=== PATIENT | female | born 1960 | race Caucasian/White ===

== ENCOUNTER 2018-02-07 22:33 | Inpatient (IN) | payer OTHER ==
[2018-02-07] MEDS ORDERED: NALOXONE 0.4 MG/ML 1 ML VIAL IV PRN (22:39)
[2018-02-07] MEDS ORDERED: ACETAMINOPHEN TAB 325 MG TAB PO PRN (22:39)
[2018-02-07] MEDS ORDERED: MORPHINE SULFATE 4 MG/ML SYRINGE IV PRN (22:39)
--- NOTE | 2018-02-07 22:52 | ED ---
General Adult HPI - General Stated complaint: Fever Time Seen by Provider: 02/07/18 22:37 - History of Present Illness Initial comments: Swati with past medical history significant for frequent urinary tract infections who is transferred to our hospital via EMS from an outside facility for evaluation of sepsis secondary to pyelonephritis. Patient reports that she has had urinary tract infections every year or so since she was a teenager. She does report that over the past couple of years she has noticed increasing frequency of urinary tract infections. She states that earlier this year she was admitted to a hospital in [facility], she went to the emergency department for diarrhea and was noted to have a urinary tract infection. At that time computed tomography scan revealed some abnormality though she was never told that she had kidney stones she did undergo a cystoscopy with stent placement. Her stent was subsequently removed. Patient has not followed with urology since that time. Patient reports that she is currently visiting her daughter who is moved to [place], she states that for the past 10 days she's been experiencing urinary frequency, hesitancy, dysuria she knew was indicative of another urinary tract infection. However because she does not have a primary care here and did not want around her vacation she did not seek care. Patient reports that today she is feeling fatigued, nauseated had a been eating or drinking well and decided come to the ER. An outside ER where she was noted to be febrile, tachycardic, urinalysis revealed a UTI, she had no leukocytosis but was noted to have neutrophilia and acute kidney injury. Computed tomography scan revealed diffuse bladder wall thickening as well as thickening of the ureters, patient was given IV fluids and Rocephin transferred here for further evaluation and treatment for sepsis secondary to pyelonephritis and potentially consult to urology. - Related Data Allergies Allergy/AdvReac Type Severity Reaction Status Date / Time celecoxib [From Celebrex] Allergy Rash/Hives Verified 02/07/18 22:42 Penicillins Allergy Unknown Verified 02/07/18 22:42 Childhood Sulfa (Sulfonamide Allergy Rash/Hives Verified 02/07/18 22:42 Antibiotics) Review of Systems ROS Statement: Those systems with pertinent positive or pertinent negative responses have been documented in the HPI. ROS Other: All systems not noted in ROS Statement are negative. Constitutional: Reports: fever, chills Respiratory: Denies: dyspnea Cardiovascular: Denies: chest pain, palpitations Endocrine: Reports: fatigue Gastrointestinal: Reports: abdominal pain, nausea Genitourinary: Reports: urgency, dysuria, frequency, hematuria Musculoskeletal: Reports: back pain Skin: Denies: rash Neurological: Denies: headache, weakness Psychiatric: Denies: anxiety, depression Hematological/Lymphatic: Denies: easy bleeding, easy bruising General Exam Limitations: no limitations, language barrier General appearance: alert, in no apparent distress Head exam: Present: atraumatic, normocephalic Eye exam: Present: normal appearance, PERRL ENT exam: Present: mucous membranes moist Neck exam: Present: full ROM Respiratory exam: Absent: respiratory distress Cardiovascular Exam: Present: tachycardia GI/Abdominal exam: Present: soft, other (Tenderness to palpation in suprapubic region). Absent: distended Extremities exam: Present: normal inspection Back exam: Present: CVA tenderness (R), CVA tenderness (L) Neurological exam: Present: alert, oriented X3 Psychiatric exam: Present: normal affect, normal mood Skin exam: Present: warm Course Vital Signs 02/07/18 22:35 Temperature 99.2 F Pulse Rate 102 H Respiratory 20 Rate Blood Pressure 174/88 O2 Sat by Pulse 97 Oximetry Medical Decision Making - Medical Decision Making I received a call from the transferring physician at outside facility, patient with sepsis secondary to pyelonephritis and CT findings of thickening bladder thickening ureters with no signs of nephrolithiasis. Patient was to be transferred to our facility for evaluation and treatment of sepsis, acute kidney injury and evaluation by urology. On arrival the patient's receiving IV fluids, she is resting comfortably on the EMS bed, she has noted be tachycardic and febrile still. Patient's labs were reviewed, patient did have a urinary tract infection, acute kidney injury. She did receive IV fluid bolus as well as Rocephin. At this time I do not feel any further diagnostic evaluation is indicated by the emergency room and the patient will be admitted for sepsis secondary to pyelonephritis. A consult to urology was placed for the patient to be evaluated tomorrow. Disposition Clinical Impression: Pyelonephritis, Sepsis Disposition: ADMITTED IP TO THIS [facility] Condition: Good Referrals: None,Stated [Primary Care Provider] - 1-2 days Decision Time: 23:26
[2018-02-07] MEDS ORDERED: GABAPENTIN 300 MG CAP PO STA (23:53)
[2018-02-08 01:10] LABS: Glucose,Whole Blood 164 mg/dL (75-99)
[2018-02-08 01:19] VITALS: BMI 29.5
[2018-02-08] MEDS: SODIUM CHLORIDE 0.9% 1,000 ML IV SCH ×5 (01:47→21:12)
[2018-02-08 07:09] LABS: Glucose,Whole Blood 247 mg/dL (75-99)
[2018-02-08] MEDS ORDERED: PANTOPRAZOLE 40 MG TABLET PO SCH (07:30)
[2018-02-08] MEDS: INSULIN ASPART 100 UNIT/ML 1 ML 10 ML VIAL SQ SCH ×4 (07:47→20:03)
[2018-02-08 07:54] LABS: Basophils # (A) 0.1 k/uL (0-0.2); Basophils % (A) 1 %; Eosinophils # (A) 0.1 k/uL (0-0.7); Eosinophils % (A) 1 %; HCT 32.6 % (34.0-46.0); HGB 10.3 gm/dL (11.4-16.0); Hypochromasia Slight; Lymphocytes # (A) 1.1 k/uL (1.0-4.8); Lymphocytes % (A) 17 %; MCH 25.1 pg (25.0-35.0); MCHC 31.5 g/dL (31.0-37.0); MCV 79.6 fL (80.0-100.0); Mean Platelet Volume 6.3; Monocytes # (A) 0.3 k/uL (0-1.0); Monocytes % (A) 5 %; Neutrophils % (A) 76 %; Platelet Count 267 k/uL (150-450); RBC 4.09 m/uL (3.80-5.40); RDW 14.7 % (11.5-15.5); WBC 6.6 k/uL (3.8-10.6)
[2018-02-08] MEDS: GABAPENTIN 300 MG CAP PO SCH ×3 (08:02→21:12)
[2018-02-08] MEDS: CITALOPRAM HYDROBROMIDE 20 MG TAB PO SCH (08:02)
[2018-02-08 08:24] LABS: Magnesium 1.4 mg/dL (1.6-2.3); Potassium 5.2 mmol/L (3.5-5.1)
[2018-02-08] MEDS: INSULIN DETEMIR 100 UNIT/ML 10 ML VIAL SQ SCH (08:47)
[2018-02-08] MEDS: traMADol 50 MG TAB PO PRN ×3 (08:56→21:12)
[2018-02-08] MEDS ORDERED: LISINOPRIL 20 MG TAB PO SCH (09:00)
[2018-02-08] MEDS: cefTRIAXone IN SWFI 1,000 MG/10 ML SYRINGE IVP SCH (09:57)
[2018-02-08] MEDS: MAGNESIUM SULFATE-D5W PMX 1 GM in DEXTROSE/WATER 1 100ML.BAG IVPB SCH ×2 (10:31→11:54)
--- NOTE | 2018-02-08 11:00 | P.HPIM ---
History of Present Illness Patient with history of multiple UTIs in the past and a recent urinary stent came in with complains of pressure in the superpubic area, dysuria. Patient urinalysis is not impressive showed 1+ bacteria. Patient is transferred from [facility]. Patient had kidney stones and underwent a cystoscopy and stent placement recently. Patient will be started on Rocephin which she tolerated at other facility urine cultures and urine will be obtained these were already obtained at the other facility. Patient has renal dysfunction she was told recently that she has chronic kidney disease may be from diabetic nephropathy on hold off on 9 lisinopril her blood pressure is expected to go up patient was started on IV fluids which I will continue and repeat basic metabolic profile tomorrow. He was consulted from ER patient denied any flank pain. Review of Systems REVIEW OF SYSTEMS: CONSTITUTIONAL: No fever, no malaise, no fatigue. HEENT: No recent visual problems or hearing problems. Denied any sore throat. CARDIOVASCULAR: No chest pain, orthopnea, PND, no palpitations, no syncope. PULMONARY: No shortness of breath, no cough, no hemoptysis. GASTROINTESTINAL: No diarrhea, no nausea, no vomiting, no abdominal pain. Normoactive bowel sounds. NEUROLOGICAL: No headaches, no weakness, no numbness. HEMATOLOGICAL: Denies any bleeding or petechiae. GENITOURINARY: As mentioned in HPI patient is also complaining of urinary frequency MUSCULOSKELETAL/RHEUMATOLOGICAL: Denies any joint pain, swelling, or any muscle pain. ENDOCRINE: Denies any polyuria or polydipsia. The rest of the 14-point review of systems is negative. Past Medical History Past Medical History: Diabetes Mellitus, Hypertension History of Any Multi-Drug Resistant Organisms: None Reported Past Surgical History: Hernia Repair, Tubal Ligation Additional Past Surgical History / Comment(s): Renal stents: end of November. Stents removed in early December per patient. Hemangioma opened and drained 20 years ago. Past Anesthesia/Blood Transfusion Reactions: No Reported Reaction Past Psychological History: No Psychological Hx Reported Smoking Status: Never smoker Past Alcohol Use History: None Reported Past Drug Use History: None Reported - Past Family History Sister(s) Family Medical History: Hypertension Additional Family Medical History / Comment(s): CML, Mother Family Medical History: Hypertension Additional Family Medical History / Comment(s): Per patient mother was a borderline diabetic. at 49 years old from septic gallbladder attack and PR. Medications and Allergies Home Medications Medication Instructions Recorded Confirmed Type Citalopram Hydrobromide [CeleXA] 20 mg PO DAILY 02/08/18 02/08/18 History Gabapentin [Neurontin] 300 mg PO TID 02/08/18 02/08/18 History Insulin Aspart [NovoLOG] 0 units SQ ACHS 02/08/18 02/08/18 History Insulin Detemir [Levemir] 26 unit SQ QAM 02/08/18 02/08/18 History Lisinopril [Zestril] 20 mg PO DAILY 02/08/18 02/08/18 History Omeprazole [PriLOSEC] 20 mg PO AC-BRKFST 02/08/18 02/08/18 History traMADol HCL [Ultram] 50 mg PO Q6HR PRN 02/08/18 02/08/18 History Allergies Allergy/AdvReac Type Severity Reaction Status Date / Time celecoxib [From Celebrex] Allergy Rash/Hives Verified 02/07/18 22:42 Penicillins Allergy Unknown Verified 02/07/18 22:42 Childhood shellfish derived [Shellfish] Allergy Rash/Hives Verified 02/08/18 04:20 Sulfa (Sulfonamide Allergy Rash/Hives Verified 02/07/18 22:42 Antibiotics) Physical Exam Vitals: Vital Signs Temp Pulse Pulse Pulse Resp BP BP 02/08/18 08:50 112 H 110 H 16 02/08/18 05:00 97.6 F 110 H 16 169/94 02/08/18 00:26 97.7 F 112 H 16 162/86 02/07/18 22:35 99.2 F 102 H 20 174/88 Pulse Ox 02/08/18 08:50 02/08/18 05:00 97 02/08/18 00:26 98 02/07/18 22:35 97 Intake and Output 02/07/18 02/08/18 02/08/18 22:59 06:59 14:59 Other: Voiding Method Toilet Toilet # Voids 1 1 Weight 79.379 kg 78 kg 78 kg PHYSICAL EXAMINATION: GENERAL: The patient is alert and oriented x3, not in any acute distress. Well developed, well nourished. HEENT: Pupils are round and equally reacting to light. EOMI. No scleral icterus. No conjunctival pallor. Normocephalic, atraumatic. No pharyngeal erythema. No thyromegaly. CARDIOVASCULAR: S1 and S2 present. No murmurs, rubs, or gallops. PULMONARY: Chest is clear to auscultation, no wheezing or crackles. ABDOMEN: Soft, nontender, nondistended, normoactive bowel sounds. No palpable organomegaly. MUSCULOSKELETAL: No joint swelling or deformity. EXTREMITIES: No cyanosis, clubbing, or pedal edema. NEUROLOGICAL: Gross neurological examination did not reveal any focal deficits. SKIN: No rashes. Results CBC & Chem 7: 02/08/18 07:09 02/08/18 07:09 Labs: Abnormal Lab Results - Last 24 Hours (Table) 02/08/18 02/08/18 02/08/18 Range/Units 01:08 07:09 07:09 Hgb 10.3 L (11.4-16.0) gm/dL Hct 32.6 L (34.0-46.0) % MCV 79.6 L (80.0-100.0) fL Potassium 5.2 H (3.5-5.1) mmol/L Chloride 110 H (98-107) mmol/L Carbon Dioxide 20 L (22-30) mmol/L BUN 38 H (7-17) mg/dL Creatinine 2.03 H (0.52-1.04) mg/dL Glucose 242 H (74-99) mg/dL POC Glucose (mg/dL) 164 H (75-99) mg/dL Magnesium 1.4 L (1.6-2.3) mg/dL 02/08/18 Range/Units 07:09 Hgb (11.4-16.0) gm/dL Hct (34.0-46.0) % MCV (80.0-100.0) fL Potassium (3.5-5.1) mmol/L Chloride (98-107) mmol/L Carbon Dioxide (22-30) mmol/L BUN (7-17) mg/dL Creatinine (0.52-1.04) mg/dL Glucose (74-99) mg/dL POC Glucose (mg/dL) 247 H (75-99) mg/dL Magnesium (1.6-2.3) mg/dL Thrombosis Risk Factor Assmnt - Choose All That Apply Each Factor Represents 1 point: Age 41-60 years, Sepsis (< 1month) Other Risk Factors: No Thrombosis Risk Factor Assessment Total Risk Factor Score: 2 Thrombosis Risk Factor Assessment Level: Low Risk Assessment and Plan Plan: -Possibility of urinary tract infection cultures as mentioned above patient will be started on Rocephin infectious disease will be consulted as I cannot completely rule in or rule out UTI. -Type 2 diabetes mellitus with the possibility of diabetic nephropathy stage IV. I do not have baseline creatinine. -Renal failure: Most probably chronic kidney disease all give her IV fluid challenge and see if kidney function improves patient may have a competent of prerenal azotemia. -Hyperkalemia secondary to lisinopril which will be held and because of renal failure lisinopril will need need to be held as its only minimally elevated on repeat basic metabolic profile tomorrow no further intervention at this time. -Hypertension: I will let her blood pressures stay high unless it goes up about 200 systolic patient will be given when necessary oral antidepressant medications.
[2018-02-08 11:24] LABS: Glucose,Whole Blood 141 mg/dL (75-99)
--- NOTE | 2018-02-08 11:53 | P.GSCN ---
History of Present Illness Consult date: 02/08/18 Reason for Consult: Pyelonephritis History of present illness: The patient is a 57-year-old female who was transferred from the [facility] emergency room yesterday evening for treatment of presumed pyelonephritis. She says that over the last 10 days she has developed increasing urinary frequency, low back pain and dysuria. Yesterday she thought she had a fever although she never checked her temperature. She presented to the [facility] emergency room where she was noted have a temperature of 98.2. Her white blood count was 7500. Lactic acid was 0.9. BUN/creatinine were 35/2.0. A urinalysis showed evidence of pyuria but was negative for nitrite. Computed tomography scan of the abdomen and pelvis showed mild bilateral hydronephrosis but no evidence of urolithiasis. The ureters appeared to be slightly dilated down to the level of the bladder which was felt to be thick walled. The radiologist felt there was periureteral and renal stranding. The patient was started on antibiotics and transferred for further evaluation. Since the patient has been transferred she has remained afebrile. Her white blood count is 6600. She continues to have pain which is predominantly in the suprapubic area and low back. The patient said that she was evaluated by a urologist in [place] in November and at that time a computed tomography scan showed evidence of a thick-walled bladder and hydronephrosis. She said that she had a left double-J catheter in place for several weeks and this was removed in late November. She is uncertain as to the cause of the bladder abnormality. She had says that she has had urinary tract infections in the past. She has no history of urolithiasis. She is currently voiding every 30-60 minutes during the day and night. She says that this has worsened over the last 7-10 days but she believes she's had urinary frequency to some degree ever since November. She did note a small amount of blood in the urine yesterday. Review of Systems - Constitutional Reports chills, Reports lethargy, Denies fever - Cardiovascular Reports high blood pressure, Reports palpitations, Denies shortness of breath - Respiratory Denies cough - Gastrointestinal Reports as per HPI - Genitourinary Genitourinary: Reports as per HPI Past Medical History Past Medical History: Diabetes Mellitus, Hypertension History of Any Multi-Drug Resistant Organisms: None Reported Past Surgical History: Hernia Repair (Umbilical 3), Tubal Ligation Additional Past Surgical History / Comment(s): Renal stents: end of November. Stents removed in early December per patient. Hemangioma opened and drained 20 years ago. Past Anesthesia/Blood Transfusion Reactions: No Reported Reaction Past Psychological History: No Psychological Hx Reported Smoking Status: Never smoker Past Alcohol Use History: None Reported Past Drug Use History: None Reported - Past Family History Sister(s) Family Medical History: Hypertension Additional Family Medical History / Comment(s): CML, Mother Family Medical History: Hypertension Additional Family Medical History / Comment(s): Per patient mother was a borderline diabetic. at 49 years old from septic gallbladder attack and DC. Medications and Allergies Home Medications Medication Instructions Recorded Confirmed Type Citalopram Hydrobromide [CeleXA] 20 mg PO DAILY 02/08/18 02/08/18 History Gabapentin [Neurontin] 300 mg PO TID 02/08/18 02/08/18 History Insulin Aspart [NovoLOG] 0 units SQ ACHS 02/08/18 02/08/18 History Insulin Detemir [Levemir] 26 unit SQ QAM 02/08/18 02/08/18 History Lisinopril [Zestril] 20 mg PO DAILY 02/08/18 02/08/18 History Omeprazole [PriLOSEC] 20 mg PO AC-BRKFST 02/08/18 02/08/18 History traMADol HCL [Ultram] 50 mg PO Q6HR PRN 02/08/18 02/08/18 History Allergies Allergy/AdvReac Type Severity Reaction Status Date / Time celecoxib [From Celebrex] Allergy Rash/Hives Verified 02/07/18 22:42 Penicillins Allergy Unknown Verified 02/07/18 22:42 Childhood shellfish derived [Shellfish] Allergy Rash/Hives Verified 02/08/18 04:20 Sulfa (Sulfonamide Allergy Rash/Hives Verified 02/07/18 22:42 Antibiotics) Surgical - Exam Vital Signs Temp Pulse Resp BP Pulse Ox 99.2 F 102 H 20 174/88 97 02/07/18 22:35 02/07/18 22:35 02/07/18 22:35 02/07/18 22:35 02/07/18 22:35 - General well developed, well nourished, no distress - Neck no masses, no lymphadectomy - Respiratory normal respiratory effort - Abdomen Abdomen: soft, non tender, no organomegaly, no distended Hernia: none Results - Labs 02/08/18 07:09 02/08/18 07:09 Abnormal Lab Results - Last 24 Hours (Table) 02/08/18 02/08/18 02/08/18 Range/Units 01:08 07:09 07:09 Hgb 10.3 L (11.4-16.0) gm/dL Hct 32.6 L (34.0-46.0) % MCV 79.6 L (80.0-100.0) fL Potassium 5.2 H (3.5-5.1) mmol/L Chloride 110 H (98-107) mmol/L Carbon Dioxide 20 L (22-30) mmol/L BUN 38 H (7-17) mg/dL Creatinine 2.03 H (0.52-1.04) mg/dL Glucose 242 H (74-99) mg/dL POC Glucose (mg/dL) 164 H (75-99) mg/dL Magnesium 1.4 L (1.6-2.3) mg/dL 02/08/18 02/08/18 Range/Units 07:09 11:23 Hgb (11.4-16.0) gm/dL Hct (34.0-46.0) % MCV (80.0-100.0) fL Potassium (3.5-5.1) mmol/L Chloride (98-107) mmol/L Carbon Dioxide (22-30) mmol/L BUN (7-17) mg/dL Creatinine (0.52-1.04) mg/dL Glucose (74-99) mg/dL POC Glucose (mg/dL) 247 H 141 H (75-99) mg/dL Magnesium (1.6-2.3) mg/dL Diabetes panel 02/08/18 Range/Units 07:09 Sodium 139 (137-145) mmol/L Potassium 5.2 H (3.5-5.1) mmol/L Chloride 110 H (98-107) mmol/L Carbon Dioxide 20 L (22-30) mmol/L BUN 38 H (7-17) mg/dL Creatinine 2.03 H (0.52-1.04) mg/dL Glucose 242 H (74-99) mg/dL Calcium 9.0 (8.4-10.2) mg/dL Calcium panel 02/08/18 Range/Units 07:09 Calcium 9.0 (8.4-10.2) mg/dL Pituitary panel 02/08/18 Range/Units 07:09 Sodium 139 (137-145) mmol/L Potassium 5.2 H (3.5-5.1) mmol/L Chloride 110 H (98-107) mmol/L Carbon Dioxide 20 L (22-30) mmol/L BUN 38 H (7-17) mg/dL Creatinine 2.03 H (0.52-1.04) mg/dL Glucose 242 H (74-99) mg/dL Calcium 9.0 (8.4-10.2) mg/dL Adrenal panel 02/08/18 Range/Units 07:09 Sodium 139 (137-145) mmol/L Potassium 5.2 H (3.5-5.1) mmol/L Chloride 110 H (98-107) mmol/L Carbon Dioxide 20 L (22-30) mmol/L BUN 38 H (7-17) mg/dL Creatinine 2.03 H (0.52-1.04) mg/dL Glucose 242 H (74-99) mg/dL Calcium 9.0 (8.4-10.2) mg/dL Assessment and Plan (1) Cystitis Narrative/Plan: The patient's symptoms, lack of fever, lack of elevated white blood count and lack of lactic acidosis or more consistent with acute cystitis then acute pyelonephritis. The patient's pain is mainly in the low back and suprapubic area and is not lateralized to either the right or left side which is also consistent with this. The patient apparently has chronic thickening of the bladder dates back to at least November which would explain the mild hydronephrosis noted on the computed tomography scan. No further evaluation of this is necessary at this time however the patient should follow up with her urologist when she returns to [place] in March. Her renal function is not normal but this may also be chronic. I plan no further evaluation. Current Visit: Yes Status: Acute Code(s): N30.90 - CYSTITIS, UNSPECIFIED WITHOUT HEMATURIA SNOMED Code(s): 66367135
[2018-02-08 12:27] LABS: Appearance,Urine Turbid (Clear); Bacteria,Urine Rare /hpf; Bilirubin,Urine Negative (Negative); Blood,Urine Moderate (Negative); Budding Yeast,Urine Many /hpf; Color,Urine Light Yellow; Glucose,Urine (UA) 1+ (Negative); Ketones,Urine Negative (Negative); Leukocyte Esterase,Urine Large (Negative); Nitrite,Urine Negative (Negative); Protein,Urine 1+ (Negative); RBC,Urine 31 /hpf (0-5); Specific Gravity,Urine 1.014 (1.001-1.035); Squamous Epithelial Cell,Urine 4 /hpf (0-4); Urobilinogen,Urine <2.0 mg/dL (<2.0); WBC,Urine >182 /hpf (0-5)
[2018-02-08 16:45] LABS: Glucose,Whole Blood 87 mg/dL (75-99)
[2018-02-08] MEDS: FLUCONAZOLE 100 MG TAB PO SCH (19:59)
[2018-02-08 20:00] LABS: Glucose,Whole Blood 180 mg/dL (75-99)
--- NOTE | 2018-02-08 20:33 | CONS ---
CONSULTATION DATE OF SERVICE: 02/08/2018. REASON FOR CONSULTATION: 1. Urinary tract infection. 2. Multiple antibiotic allergy. HISTORY OF PRESENT ILLNESS: The patient is a 57 -year-old female who did have a complicated urinary history as the patient did have a history of urinary obstruction requiring a stent placement on the left side that was subsequently discontinued. The patient said she did have an infection at that time and has been treated with a course of oral antibiotic therapy, however the patient is not sure about the name of this antibiotic. The patient who lives in [place], [place] recently moved to the [facility] as the daughter has moved here. The patient presented to [facility] with chief complaints of a pressure in the lower abdominal area with urinary frequency and dysuria. Her symptoms have been going on for almost 10 days now. The patient did have some low-grade fever. Denies having any fever, rigors and chills. The patient did complain of some pain in her left flank area, more of a dull aching pain 3-4 out of 10 and no radiation. With these symptoms, the patient was evaluated by the ER physician as the patient was tachycardic, febrile at that facility did have positive with concern for possible pyelonephritis. Patient has been transferred to this facility for further management. The patient has been treated with Rocephin. Infectious disease was consulted for further recommendation regarding antibiotic therapy. REVIEW OF SYSTEMS: Constitutional: Positive for weakness and some chills. Eyes: No complaint. ENT no complaint. Respiratory no complaint. Cardiovascular no complaint. Genitourinary as per HPI. GASTROINTESTINAL: As per HPI. Musculoskeletal: No complaint. Integumentary: No complaint. Psychological: No complaint. Endocrine no complaint. Neurologic no complaint. PAST MEDICAL HISTORY: Significant for UTI, urine outflow obstruction requiring a stent placement, diabetes mellitus, hypertension. PAST SURGICAL HISTORY: Hernia repair, tubal ligation, renal stent placement and subsequent removal. SOCIAL HISTORY: No history of smoking, drinking or drug use. FAMILY HISTORY: Sister with hypertension and CML. Mother history of hypertension and diabetes. ALLERGIES: PENICILLIN, SULFA. MEDICATIONS: The patient is currently on Tylenol, Rocephin, Celexa, Colace, Neurontin, NovoLog, Levemir, morphine sulfate, Narcan, Ultram. EXAMINATION: Blood pressure 120/75 with pulse of 110, temperature of 98, T-max of 99.2, she is 99% on room air. General description is a middle aged female lying in bed in no distress. No tachypnea or accessory muscles of respiration use. HEENT: Shows pallor. No scleral icterus. Oral mucosa membranes are dry. No pharyngeal erythema or thrush. Neck trachea central. No thyromegaly. Lungs unlabored breathing. Clear to auscultation anteriorly. No wheeze or crackles. Heart S1, S2. Regular rate and rhythm. ABDOMEN: Soft. No tenderness. No guarding or rigidity. Minimal left leg tenderness. Extremities: No edema of the feet. Skin examination: No rash or mass palpable. Neurological: Patient is awake, alert, oriented times three. Mood and affect normal. LABS: Hemoglobin is 10.3, white count 6.6, BUN of 28, creatinine 2.03. UA with moderate leukocyte esterases, more than 1-2 WBC with many bacteria and many budding yeast. Cultures currently pending. DIAGNOSTIC IMPRESSION/PLAN: 1. Patient presented to the hospital with urinary pressure, burning, frequency and dysuria in a patient who does have a history of a complicated urinary tract infection with urinary obstruction requiring ureteral stent placement that was recently discontinued, now with a significantly positive UA. The patient apparently did have a fever at [facility] and tachycardia with concern for possible sepsis. However no fever or elevated white count has been noted at this facility. Likely from enteric gram-negative. However, in view of the significant yeast, will need to cover this. We will continue the patient on Rocephin 1 g daily. However, add Diflucan 1 mg p.o. daily. 2. Depending upon the clinical response as well as cultures we will adjust her medications further if needed. Thank you for this consultation. I will follow this patient along with you. MMODL / IJN: [id number] /
[2018-02-08] MEDS: DOCUSATE 100 MG CAP PO PRN (21:12)
[2018-02-09] MEDS: traMADol 50 MG TAB PO PRN ×4 (02:27→20:47)
[2018-02-09] MEDS: SODIUM CHLORIDE 0.9% 1,000 ML IV SCH ×2 (04:28→11:54)
[2018-02-09 06:56] LABS: Glucose,Whole Blood 133 mg/dL (75-99)
[2018-02-09 07:13] VITALS: RESP 16
[2018-02-09 07:35] LABS: HGB 10.1 gm/dL (11.4-16.0); Hypochromasia Slight; MCH 25.2 pg (25.0-35.0); MCHC 31.6 g/dL (31.0-37.0); Mean Platelet Volume 6.3; Platelet Count 265 k/uL (150-450); RDW 15.1 % (11.5-15.5); WBC 7.4 k/uL (3.8-10.6)
[2018-02-09 07:43] LABS: Calcium 9.2 mg/dL (8.4-10.2); Potassium 5.4 mmol/L (3.5-5.1)
[2018-02-09] MEDS: INSULIN ASPART 100 UNIT/ML 1 ML 10 ML VIAL SQ SCH ×4 (07:45→20:48)
[2018-02-09] MEDS: GABAPENTIN 300 MG CAP PO SCH ×3 (07:58→20:47)
[2018-02-09] MEDS: FLUCONAZOLE 100 MG TAB PO SCH (07:58)
[2018-02-09] MEDS: CITALOPRAM HYDROBROMIDE 20 MG TAB PO SCH (07:58)
[2018-02-09] MEDS: DOCUSATE 100 MG CAP PO PRN (08:11)
[2018-02-09] MEDS: INSULIN DETEMIR 100 UNIT/ML 10 ML VIAL SQ SCH (09:06)
[2018-02-09] MEDS: cefTRIAXone IN SWFI 1,000 MG/10 ML SYRINGE IVP SCH (09:06)
[2018-02-09] MEDS ORDERED: SODIUM POLYSTYRENE SULFONATE 15 GM/60 ML BOTTLE PO STA (09:48)
--- NOTE | 2018-02-09 10:47 | P.PN ---
Subjective 57-year-old admitted with the acute severe cystitis and urinary tract infection patient on Rocephin which is being continued. Flucanazole was added infectious disease is a valid the patient neurology evaluated the patient. Patient is still complaining of severe pressure in the superpubic area. Cut him IV fluids to 75 mL/h. Patient renal failure is probably chronic and no improvement in creatinine in spite of aggressive hydration. Constitutional: Denied any fatigue denied any fever. Cardio vascular: denied any chest pain, palpitations Gastrointestinal denied any nausea vomiting Pulmonary: Denied any shortness of breath cough Neurologic denied any new focal deficits Objective - Vital Signs Vital signs: Vital Signs Temp 98.4 F 02/09/18 07:12 Pulse 99 02/09/18 08:06 Resp 16 02/09/18 08:06 BP 150/77 02/09/18 07:12 Pulse Ox 96 02/09/18 07:12 Intake & Output 02/08/18 02/09/18 02/09/18 18:59 06:59 18:59 Intake Total 2390 Balance 2390 Weight 78 kg 78 kg Intake: Intake, IV Titration 1800 Amount Sodium Chloride 0.9% 1, 1800 000 ml @ 150 mls/hr IV . Q6H40M [facility] Rx#:[id number] Oral 590 Other: Voiding Method Toilet Toilet Toilet # Voids 5 2 - Exam PHYSICAL EXAMINATION: GENERAL: The patient is alert and oriented x3, not in any acute distress. Well developed, well nourished. HEENT: Pupils are round and equally reacting to light. EOMI. No scleral icterus. No conjunctival pallor. Normocephalic, atraumatic. No pharyngeal erythema. No thyromegaly. CARDIOVASCULAR: S1 and S2 present. No murmurs, rubs, or gallops. PULMONARY: Chest is clear to auscultation, no wheezing or crackles. ABDOMEN: Soft, nontender, nondistended, normoactive bowel sounds. No palpable organomegaly. MUSCULOSKELETAL: No joint swelling or deformity. EXTREMITIES: No cyanosis, clubbing, or pedal edema. NEUROLOGICAL: Gross neurological examination did not reveal any focal deficits. SKIN: No rashes. - Labs CBC & Chem 7: 02/09/18 06:48 02/09/18 06:48 Labs: Abnormal Lab Results - Last 24 Hours (Table) 02/08/18 02/08/18 02/08/18 Range/Units 10:47 11:23 19:58 Hgb (11.4-16.0) gm/dL Hct (34.0-46.0) % Potassium (3.5-5.1) mmol/L Chloride (98-107) mmol/L Carbon Dioxide (22-30) mmol/L BUN (7-17) mg/dL Creatinine (0.52-1.04) mg/dL Glucose (74-99) mg/dL POC Glucose (mg/dL) 141 H 180 H (75-99) mg/dL Urine Appearance Turbid H (Clear) Urine Protein 1+ H (Negative) Urine Glucose (UA) 1+ H (Negative) Urine Blood Moderate H (Negative) Ur Leukocyte Esterase Large H (Negative) Urine RBC 31 H (0-5) /hpf Urine WBC >182 H (0-5) /hpf Urine WBC Clumps Many H (None) /hpf Urine Bacteria Rare H (None) /hpf Urine Yeast (Budding) Many H (None) /hpf 02/09/18 02/09/18 02/09/18 Range/Units 06:48 06:48 06:55 Hgb 10.1 L (11.4-16.0) gm/dL Hct 32.0 L (34.0-46.0) % Potassium 5.4 H (3.5-5.1) mmol/L Chloride 113 H (98-107) mmol/L Carbon Dioxide 19 L (22-30) mmol/L BUN 34 H (7-17) mg/dL Creatinine 2.07 H (0.52-1.04) mg/dL Glucose 130 H (74-99) mg/dL POC Glucose (mg/dL) 133 H (75-99) mg/dL Urine Appearance (Clear) Urine Protein (Negative) Urine Glucose (UA) (Negative) Urine Blood (Negative) Ur Leukocyte Esterase (Negative) Urine RBC (0-5) /hpf Urine WBC (0-5) /hpf Urine WBC Clumps (None) /hpf Urine Bacteria (None) /hpf Urine Yeast (Budding) (None) /hpf Microbiology - Last 24 Hours (Table) 02/08/18 10:47 Urine Culture - Preliminary Urine,Voided Assessment and Plan Plan: -Possibility of urinary tract infection awaiting urine cultures, patient appears to have severe cystitis . Continue with Rocephin flucanazole was added by infectious disease which will be continued -Type 2 diabetes mellitus with the possibility of diabetic nephropathy stage IV. -Renal failure: It appears to be chronic kidney disease from diabetic nephropathy had on the fluids to 75 mL per hour -Hyperkalemia secondary to lisinopril which will be held, patient is constipated as well will order kayexalate. basic metabolic profile tomorrow n -Hypertension: I will let her blood pressures stay high unless it goes up about 200 systolic patient will be given when necessary oral antidepressant medications.
[2018-02-09 11:18] LABS: Glucose,Whole Blood 210 mg/dL (75-99)
[2018-02-09 16:52] LABS: Glucose,Whole Blood 99 mg/dL (75-99)
[2018-02-09 19:58] LABS: Glucose,Whole Blood 124 mg/dL (75-99)
--- NOTE | 2018-02-10 00:22 | PN ---
PROGRESS NOTE DATE OF SERVICE: 02/09/2018 REASON FOR FOLLOWUP: urinary tract infection. INTERVAL HISTORY: The patient is afebrile. He is still complaining of pressure in the lower abdominal area with some radiation down to the anterior thigh. The patient denies having any chest pain or shortness of breath or cough and no diarrhea. EXAMINATION: Blood pressure 176/83 with a pulse of 102, temperature 98.7, she is 94% on room air. General description is a middle-aged female lying in bed in no distress. Respiratory system: Unlabored breathing. Clear to auscultation anteriorly. Heart S1, S2. Regular rate and rhythm. Abdomen soft, no tenderness. Extremities: No edema of the feet. LABS: Hemoglobin is 10.2, white count 7.4, creatinine is 2.07. Urine culture so far negative. DIAGNOSTIC IMPRESSION AND PLAN: Patient admitted to the hospital with a possible complicated urinary tract infection for which the patient did have a complicated previous complete urinary history with stent that was recently removed on the floor. Did have evidence of hydronephrosis with elevated creatinine and had positive UA. Did have some fever in the outpatient setting. However, fevers resolved. Urine culture so far negative. Keep the patient on Rocephin and Diflucan at this point while waiting for condition to stabilize. Continue supportive care. MMODL / IJN: [id number] /
[2018-02-10] MEDS: SODIUM CHLORIDE 0.9% 1,000 ML IV SCH ×2 (00:59→17:10)
[2018-02-10] MEDS: traMADol 50 MG TAB PO PRN ×2 (06:24→17:08)
[2018-02-10 07:02] LABS: Glucose,Whole Blood 112 mg/dL (75-99)
[2018-02-10] MEDS: INSULIN ASPART 100 UNIT/ML 1 ML 10 ML VIAL SQ SCH ×4 (07:40→20:18)
[2018-02-10 08:42] LABS: Calcium 8.9 mg/dL (8.4-10.2); Potassium 4.2 mmol/L (3.5-5.1)
[2018-02-10] MEDS: GABAPENTIN 300 MG CAP PO SCH ×3 (09:43→21:44)
[2018-02-10] MEDS: FLUCONAZOLE 100 MG TAB PO SCH (09:43)
[2018-02-10] MEDS: INSULIN DETEMIR 100 UNIT/ML 10 ML VIAL SQ SCH (09:44)
[2018-02-10] MEDS: CITALOPRAM HYDROBROMIDE 20 MG TAB PO SCH (09:44)
--- NOTE | 2018-02-10 10:56 | P.DS ---
Providers Date of admission: 02/07/18 22:39 Attending physician: Tiffanie Reynolds Consults: 02/07/18 22:39 Consult Physician Routine Consulting Provider: [place] Consult Reason/Comments: pyelonephritis, evidence of bladder/ureteral thickening on CT Do you want consulting provider notified?: Yes, Notify in am 02/08/18 09:40 Consult Physician Routine Consulting Provider: Jb Jorgensen Consult Reason/Comments: Possible UTI Do you want consulting provider notified?: Yes Primary care physician: Stated None Hospital Course: 57-year-old admitted with the acute severe cystitis and urinary tract infection patient on Rocephin which is being continued. Flucanazole was added infectious disease is a valid the patient neurology evaluated the patient. Patient is still complaining of severe pressure in the superpubic area. Cut him IV fluids to 75 mL/h. Patient renal failure is probably chronic and no improvement in creatinine in spite of aggressive hydration. 02/10/2018 I do not have any cultures available from this hospital as patient was already treated with antibiotics before we get the urine culture see her. We'll obtain urine cultures from [facility] once we get the cultures after ID assessment patient can be discharged patient still has suprapubic pressure which significantly improved compared to yesterday patient creatinine remains stable are bit elevated this is secondary to chronic kidney disease because of which patient can be resumed on lisinopril but will lower the dose and we will repeat the basic metabolic profile in 3 days make sure patient is not becoming hyperkalemic. PHYSICAL EXAMINATION: GENERAL: The patient is alert and oriented x3, not in any acute distress. Well developed, well nourished. HEENT: Pupils are round and equally reacting to light. EOMI. No scleral icterus. No conjunctival pallor. Normocephalic, atraumatic. No pharyngeal erythema. No thyromegaly. CARDIOVASCULAR: S1 and S2 present. No murmurs, rubs, or gallops. PULMONARY: Chest is clear to auscultation, no wheezing or crackles. ABDOMEN: Soft, nontender, nondistended, normoactive bowel sounds. No palpable organomegaly. MUSCULOSKELETAL: No joint swelling or deformity. EXTREMITIES: No cyanosis, clubbing, or pedal edema. NEUROLOGICAL: Gross neurological examination did not reveal any focal deficits. SKIN: No rashes Assessment and Plan Plan: -Possibility of urinary tract infection awaiting urine cultures, -Type 2 diabetes mellitus with the possibility of diabetic nephropathy stage IV. -Renal failure: Chronic kidney disease stage IV secondary to diabetic nephropathy -Hyperkalemia secondary to lisinopril cutting down the dose upon discharge -Hypertension: Patient Condition at Discharge: Good Plan - Discharge Summary Discharge Rx Participant: No New Discharge Prescriptions: Continue Gabapentin [Neurontin] 300 mg PO TID PRN PRN Reason: Pain Citalopram Hydrobromide [CeleXA] 20 mg PO DAILY Insulin Aspart [NovoLOG] See Protocol SQ AC-TID traMADol HCL [Ultram] 50 mg PO Q6HR PRN PRN Reason: Pain Omeprazole [PriLOSEC] 20 mg PO AC-BRKFST Changed Insulin Detemir [Levemir] 20 unit SQ QAM #0 Lisinopril [Zestril] 10 mg PO DAILY #0 Discharge Medication List Citalopram Hydrobromide [CeleXA] 20 mg PO DAILY 02/08/18 [History] Gabapentin [Neurontin] 300 mg PO TID PRN 02/08/18 [History] Insulin Aspart [NovoLOG] See Protocol SQ AC-TID 02/08/18 [History] Omeprazole [PriLOSEC] 20 mg PO AC-BRKFST 02/08/18 [History] traMADol HCL [Ultram] 50 mg PO Q6HR PRN 02/08/18 [History] Insulin Detemir [Levemir] 20 unit SQ QAM #0 02/10/18 [Rx] Lisinopril [Zestril] 10 mg PO DAILY #0 02/10/18 [Rx] Follow up Appointment(s)/Referral(s): None,Stated [Primary Care Provider] - 3 Days Discharge Disposition: HOME SELF-CARE
[2018-02-10] MEDS: cefTRIAXone IN SWFI 1,000 MG/10 ML SYRINGE IVP SCH (11:20)
[2018-02-10 11:31] LABS: Glucose,Whole Blood 201 mg/dL (75-99)
[2018-02-10 17:00] LABS: Glucose,Whole Blood 202 mg/dL (75-99)
[2018-02-10 20:05] LABS: Glucose,Whole Blood 100 mg/dL (75-99)
[2018-02-10] MEDS ORDERED: MORPHINE ORAL SOLN 10 MG/5 ML CUP PO PRN (20:47)
--- NOTE | 2018-02-10 23:08 | PN ---
PROGRESS NOTE DATE OF SERVICE: 02/10/2018 REASON FOR FOLLOWUP: Complicated urinary tract infection. INTERVAL HISTORY: The patient is afebrile. She is still not feeling very great, complaining of pain and discomfort in the abdominal area. No nausea, no vomiting and no diarrhea, though the patient is constipated, did not have any bowel movement over the last few days. EXAMINATION: Blood pressure 166/92 with a pulse of 89, temperature 98.4. She is 96% on room air. General description is a middle-aged female lying in bed in no distress. RESPIRATORY SYSTEM: Unlabored breathing. Clear to auscultation anteriorly. HEART: S1, S2. Regular rate and rhythm. ABDOMEN: Soft. No tenderness. LABS: The patient's creatinine is up to 2.36, admission creatinine 2.03. Urine culture has been negative. DIAGNOSTIC IMPRESSION AND PLAN: Patient admitted to the hospital with the urinary burning, frequency, suprapubic pressure and some pain in the left flank area in a patient who did have history of complicated urinary tract infection requiring a ureteral stent that was subsequently discontinued. CT was suspicious a hydronephrosis. Now the patient did have worsening of her kidney function that needs to be monitored closely. The patient at this time will continue on Rocephin and Diflucan waiting for the urine culture to be finalized that were done at the transferring facility to determine her discharge antibiotics. Continue supportive care. MMODL / IJN: [id number] /
[2018-02-11] MEDS: traMADol 50 MG TAB PO PRN ×3 (03:08→20:02)
[2018-02-11] MEDS: SODIUM CHLORIDE 0.9% 1,000 ML IV SCH (05:25)
[2018-02-11 07:11] LABS: Glucose,Whole Blood 104 mg/dL (75-99)
[2018-02-11] MEDS: INSULIN ASPART 100 UNIT/ML 1 ML 10 ML VIAL SQ SCH ×3 (07:15→16:59)
[2018-02-11] MEDS: cefTRIAXone IN SWFI 1,000 MG/10 ML SYRINGE IVP SCH (07:19)
[2018-02-11] MEDS: CITALOPRAM HYDROBROMIDE 20 MG TAB PO SCH (07:20)
[2018-02-11] MEDS: GABAPENTIN 300 MG CAP PO SCH ×2 (07:20→15:55)
[2018-02-11] MEDS: FLUCONAZOLE 100 MG TAB PO SCH (07:20)
[2018-02-11] MEDS: INSULIN DETEMIR 100 UNIT/ML 10 ML VIAL SQ SCH (08:29)
--- NOTE | 2018-02-11 10:42 | P.DS ---
Providers Date of admission: 02/07/18 22:39 Attending physician: Tiffanie Reynolds Consults: 02/07/18 22:39 Consult Physician Routine Consulting Provider: [place] Consult Reason/Comments: pyelonephritis, evidence of bladder/ureteral thickening on CT Do you want consulting provider notified?: Yes, Notify in am 02/08/18 09:40 Consult Physician Routine Consulting Provider: Jb Jorgensen Consult Reason/Comments: Possible UTI Do you want consulting provider notified?: Yes Primary care physician: Stated None Hospital Course: 57-year-old admitted with the acute severe cystitis and urinary tract infection patient on Rocephin which is being continued. Flucanazole was added infectious disease is a valid the patient neurology evaluated the patient. Patient is still complaining of severe pressure in the superpubic area. Cut him IV fluids to 75 mL/h. Patient renal failure is probably chronic and no improvement in creatinine in spite of aggressive hydration. 02/10/2018 I do not have any cultures available from this hospital as patient was already treated with antibiotics before we get the urine culture see her. We'll obtain urine cultures from [facility] once we get the cultures after ID assessment patient can be discharged patient still has suprapubic pressure which significantly improved compared to yesterday patient creatinine remains stable are bit elevated this is secondary to chronic kidney disease because of which patient can be resumed on lisinopril but will lower the dose and we will repeat the basic metabolic profile in 3 days make sure patient is not becoming hyperkalemic. 02/11/2018 Elevating cultures from [facility]. Patient is still complaining of severe pain in the suprapubic area obtain ultrasound of the kidney and gallbladder. PHYSICAL EXAMINATION: GENERAL: The patient is alert and oriented x3, not in any acute distress. Well developed, well nourished. HEENT: Pupils are round and equally reacting to light. EOMI. No scleral icterus. No conjunctival pallor. Normocephalic, atraumatic. No pharyngeal erythema. No thyromegaly. CARDIOVASCULAR: S1 and S2 present. No murmurs, rubs, or gallops. PULMONARY: Chest is clear to auscultation, no wheezing or crackles. ABDOMEN: Soft, nontender, nondistended, normoactive bowel sounds. No palpable organomegaly. MUSCULOSKELETAL: No joint swelling or deformity. EXTREMITIES: No cyanosis, clubbing, or pedal edema. NEUROLOGICAL: Gross neurological examination did not reveal any focal deficits. SKIN: No rashes Assessment and Plan Plan: -Possibility of urinary tract infection awaiting urine cultures, -Type 2 diabetes mellitus with the possibility of diabetic nephropathy stage IV. -Renal failure: Chronic kidney disease stage IV secondary to diabetic nephropathy -Hyperkalemia secondary to lisinopril cutting down the dose upon discharge -Hypertension: Patient Condition at Discharge: Good Plan - Discharge Summary Discharge Rx Participant: No New Discharge Prescriptions: Continue Gabapentin [Neurontin] 300 mg PO TID PRN PRN Reason: Pain Citalopram Hydrobromide [CeleXA] 20 mg PO DAILY Insulin Aspart [NovoLOG] See Protocol SQ AC-TID traMADol HCL [Ultram] 50 mg PO Q6HR PRN PRN Reason: Pain Omeprazole [PriLOSEC] 20 mg PO AC-BRKFST Changed Insulin Detemir [Levemir] 20 unit SQ QAM #0 Lisinopril [Zestril] 10 mg PO DAILY #0 Discharge Medication List Citalopram Hydrobromide [CeleXA] 20 mg PO DAILY 02/08/18 [History] Gabapentin [Neurontin] 300 mg PO TID PRN 02/08/18 [History] Insulin Aspart [NovoLOG] See Protocol SQ AC-TID 02/08/18 [History] Omeprazole [PriLOSEC] 20 mg PO AC-BRKFST 02/08/18 [History] traMADol HCL [Ultram] 50 mg PO Q6HR PRN 02/08/18 [History] Insulin Detemir [Levemir] 20 unit SQ QAM #0 02/10/18 [Rx] Lisinopril [Zestril] 10 mg PO DAILY #0 02/10/18 [Rx] Follow up Appointment(s)/Referral(s): None,Stated [Primary Care Provider] - 3 Days Ambulatory/Diagnostic Orders: Basic Metabolic Panel [LAB.AMB] Time Frame: 3 Days, Location: None Selected Patient Instructions/Handouts: Urinary Tract Infection in Women (DC), Sepsis ( GEN) Discharge Disposition: HOME SELF-CARE
--- NOTE | 2018-02-11 10:55 | US ---
EXAMINATION TYPE: US kidneys/renal and bladder DATE OF EXAM: 02/11/2018 COMPARISON: NONE CLINICAL HISTORY: STEVE, cystitis. hematuria, inability to empty bladder completely, pelvic pain EXAM MEASUREMENTS: Right Kidney: 10.9 x 4.9 x 5.3 cm Left Kidney: 13.0 x 5.4 x 6.6 cm Right Kidney: hydronephrosis seen Left Kidney: hydronephrosis seen Bladder: wnl. No obvious bladder masses are identified. Consider additional workup. Bilateral Jets seen: No IMPRESSION: 1. Bilateral hydronephrosis of uncertain etiology. No obstructing renal or ureteral stones are eviden t. 2. Limited urinary bladder visualization by ultrasound. Consider additional workup.
[2018-02-11 11:49] LABS: Glucose,Whole Blood 287 mg/dL (75-99)
--- NOTE | 2018-02-11 12:36 | PN ---
PROGRESS NOTE DATE OF SERVICE: 02/11/2018 REASON FOR FOLLOWUP: Urinary tract infection. INTERVAL HISTORY: The patient is afebrile. She is still complaining of some pressure in the low abdominal area with some urinary symptoms. Patient denies having any chest pain, shortness of breath or cough. No diarrhea. The patient is constipated, did not have any bowel movement since admitted to the hospital. PHYSICAL EXAMINATION: Blood pressure 149/84 with a pulse of 91, temperature 98.7, she is 94% on room air. General description is a middle-aged female, lying in bed in no distress. RESPIRATORY SYSTEM: Unlabored breathing, clear to auscultation anteriorly. HEART: S1, S2. Regular rate and rhythm. ABDOMEN: Soft, no drainage. EXTREMITIES: No edema of the feet. LABS: White count 7.5 as of yesterday with a BUN of 32, creatinine is 2.36 as of yesterday. No labs has been repeated. Urine culture has been negative. DIAGNOSTIC IMPRESSION AND PLAN: Patient with urinary tract infection complicated. Patient did have history of left- sided hydronephrosis while staying in [place]. Ultrasound is showing a bilateral hydronephrosis of unclear etiology. Creatinine is still elevated. Urine culture has been negative here. Patient reports symptom. Repeat urine culture has been ordered. Keep the patient on Zosyn and Levaquin at this point, adjusting it further based on the culture report. Continue supportive care. MMODL / IJN: [id number] /
[2018-02-11 14:14] LABS: Appearance,Urine Turbid (Clear); Bacteria,Urine Few /hpf; Bilirubin,Urine Negative (Negative); Blood,Urine Moderate (Negative); Color,Urine Light Yellow; Glucose,Urine (UA) 2+ (Negative); Ketones,Urine Negative (Negative); Leukocyte Esterase,Urine Large (Negative); Mucus,Urine Rare /hpf; Nitrite,Urine Negative (Negative); PH, Urine 6.5 (5.0-8.0); Protein,Urine 1+ (Negative); RBC,Urine 13 /hpf (0-5); Specific Gravity,Urine 1.009 (1.001-1.035); Urobilinogen,Urine <2.0 mg/dL (<2.0); WBC,Urine >182 /hpf (0-5)
[2018-02-11 16:42] LABS: Glucose,Whole Blood 77 mg/dL (75-99)
[2018-02-11 19:47] LABS: Glucose,Whole Blood 207 mg/dL (75-99)
[2018-02-11 21:02] VITALS: PULSE 95
[2018-02-11] MEDS ORDERED: INSULIN ASPART 100 UNIT/ML 1 ML 10 ML VIAL SQ ONE (22:00)
[2018-02-11] MEDS ORDERED: GABAPENTIN 300 MG CAP ONE (22:00)
[2018-02-12] MEDS ORDERED: SODIUM CHLORIDE 0.9% 1,000 ML BAG ONE (03:30)
[2018-02-12] MEDS: INSULIN ASPART 100 UNIT/ML 1 ML 10 ML VIAL SQ SCH ×3 (05:04→12:35)
[2018-02-12] MEDS: SODIUM CHLORIDE 0.9% 1,000 ML IV SCH ×2 (05:04→09:26)
[2018-02-12] MEDS: GABAPENTIN 300 MG CAP PO SCH ×2 (05:05→09:26)
[2018-02-12 05:28] VITALS: BP 159/79; TEMP 97.5
[2018-02-12 07:06] LABS: Glucose,Whole Blood 107 mg/dL (75-99)
[2018-02-12] MEDS: INSULIN DETEMIR 100 UNIT/ML 10 ML VIAL SQ SCH (09:25)
[2018-02-12] MEDS: cefTRIAXone IN SWFI 1,000 MG/10 ML SYRINGE IVP SCH (09:25)
[2018-02-12] MEDS: CITALOPRAM HYDROBROMIDE 20 MG TAB PO SCH (09:26)
[2018-02-12] MEDS: FLUCONAZOLE 100 MG TAB PO SCH (09:26)
[2018-02-12] MEDS: traMADol 50 MG TAB PO PRN (09:34)
--- NOTE | 2018-02-12 11:25 | P.DS ---
Providers Date of admission: 02/07/18 22:39 Attending physician: Tiffanie Reynolds Consults: 02/07/18 22:39 Consult Physician Routine Consulting Provider: [place] Consult Reason/Comments: pyelonephritis, evidence of bladder/ureteral thickening on CT Do you want consulting provider notified?: Yes, Notify in am 02/08/18 09:40 Consult Physician Routine Consulting Provider: Jb Jorgensen Consult Reason/Comments: Possible UTI Do you want consulting provider notified?: Yes Primary care physician: Stated None Hospital Course: Patient will be discharged once we get the the culture results from [facility]. Patient will be referred to Dr. Santiago in [facility]. Patient is still complaining of severe pressure in the suprapubic area. I asked her to discuss her symptoms with her urologist in [place]. Awaiting recommendations from infectious disease. blood pressure is bit elevated patient will be started on low-dose of lisinopril 5 mg as patient is diabetic patient appears to have chronic kidney disease stage IV. Because of her elevated potassium and cutting down the lisinopril dose and repeat basic metabolic profile in 3 days results to be faxed at the PCPs office -PHYSICAL EXAMINATION: GENERAL: The patient is alert and oriented x3, not in any acute distress. Well developed, well nourished. HEENT: Pupils are round and equally reacting to light. EOMI. No scleral icterus. No conjunctival pallor. Normocephalic, atraumatic. No pharyngeal erythema. No thyromegaly. CARDIOVASCULAR: S1 and S2 present. No murmurs, rubs, or gallops. PULMONARY: Chest is clear to auscultation, no wheezing or crackles. ABDOMEN: Soft, nontender, nondistended, normoactive bowel sounds. No palpable organomegaly. MUSCULOSKELETAL: No joint swelling or deformity. EXTREMITIES: No cyanosis, clubbing, or pedal edema. NEUROLOGICAL: Gross neurological examination did not reveal any focal deficits. SKIN: No rashes. The rest of the chronic medical problems has physician course please refer to my the discharged summary from yesterday Patient Condition at Discharge: Good Plan - Discharge Summary Discharge Rx Participant: No New Discharge Prescriptions: New Lisinopril [Zestril] 5 mg PO DAILY #30 tab Continue Gabapentin [Neurontin] 300 mg PO TID PRN PRN Reason: Pain Citalopram Hydrobromide [CeleXA] 20 mg PO DAILY Insulin Aspart [NovoLOG] See Protocol SQ AC-TID traMADol HCL [Ultram] 50 mg PO Q6HR PRN PRN Reason: Pain Omeprazole [PriLOSEC] 20 mg PO AC-BRKFST Changed Insulin Detemir [Levemir] 20 unit SQ QAM #0 Lisinopril [Zestril] 10 mg PO DAILY #0 Discharge Medication List Citalopram Hydrobromide [CeleXA] 20 mg PO DAILY 02/08/18 [History] Gabapentin [Neurontin] 300 mg PO TID PRN 02/08/18 [History] Insulin Aspart [NovoLOG] See Protocol SQ AC-TID 02/08/18 [History] Omeprazole [PriLOSEC] 20 mg PO AC-BRKFST 02/08/18 [History] traMADol HCL [Ultram] 50 mg PO Q6HR PRN 02/08/18 [History] Insulin Detemir [Levemir] 20 unit SQ QAM #0 02/10/18 [Rx] Lisinopril [Zestril] 10 mg PO DAILY #0 02/10/18 [Rx] Lisinopril [Zestril] 5 mg PO DAILY #30 tab 02/12/18 [Rx] Follow up Appointment(s)/Referral(s): Hans Santiago MD [REFERRING] - 02/17/18 2:30 pm Ambulatory/Diagnostic Orders: Basic Metabolic Panel [LAB.AMB] Time Frame: 3 Days, Location: None Selected Patient Instructions/Handouts: Lisinopril (By mouth), Urinary Tract Infection in Women (DC), Sepsis (GEN) Discharge Disposition: HOME SELF-CARE
[2018-02-12 11:35] LABS: Glucose,Whole Blood 205 mg/dL (75-99)
--- NOTE | 2018-02-12 19:20 | PN ---
PROGRESS NOTE DATE OF SERVICE: 02/12/2018. REASON FOR FOLLOWUP: UTI. INTERVAL HISTORY: The patient is currently afebrile. She is complaining of some pressure in the lower abdominal area, but denies any chest pain or shortness of breath or cough. No nausea or vomiting. Did have bowel movement, though. EXAMINATION: Blood pressure 159/79 with a pulse of 95, temperature 97.5. She is 95% on room air. General description is an elderly female lying in bed in no distress. RESPIRATORY SYSTEM: Unlabored breathing. Clear to auscultation anteriorly. HEART: S1, S2. Regular rate and rhythm. ABDOMEN: Soft. No tenderness. LAB: Repeat urine cultures are currently pending. DIAGNOSTIC IMPRESSION AND PLAN: Patient with a UTI complicated with a previous history of left hydronephrosis with ureteral stent that has been discontinued. Plan at this time is to finish therapy with oral Ceftin and Diflucan if cultures remain to be negative. Continue supportive care. MMODL / IJN: [id number] /
--- NOTE | 2018-02-19 14:18 | CDI ---
Last Revision, June 2017 Documentation Clarification Form Date: 02/19/18 From: Nicole Chahal Phone: If you have question, contact Jocelyn Carrero [employer] at M-F 8:30 am to 6pm Admit Date: 02/07/2018 10:39:00 PM Patient Name: Swati Arias Visit Number: [id number] Discharge Date: 02/12/18 ATTENTION: The Clinical Documentation Specialists (CDI) and [facility] Coding Staff appreciate your assistance in clarifying documentation. Please respond to the clarification below the line at the bottom and electronically sign. The CDI & [facility] Coding staff will review the response and follow-up if needed. Please note: Queries are made part of the Legal Health Record. If you have any questions, please contact the author of this message via ITS. Dr. Callie Fritz Ms Arias was admitted for possible sepsis due to pyelonephritis. She has frequent UTIs and has STEVE on this admission. Vital signs on admission to ED: T 99.2, Pulse 102, RR 20 The diagnosis of sepsis is documented in multiple progress notes but not carried to the discharge summaries. The diagnosis of sepsis needs to be clarified for proper reporting purposes. Please clarify: Sepsis, ruled in Sepsis, ruled out Other (please specify) Clinically unable to determine Thank you for your time. Sepsis was already documented and doesn't need to be carried to D/C summary MTDD
== END 2018-02-12 17:12 | disposition home or self-care (01) | DRG 872 ==
LOC: EC 22:33 → 5MS5E 22:39
PROVIDERS: ADMIT Hospitalist; ATTEND Hospitalist
DX: A41.9 Sepsis, unspecified organism (principal); N18.4 Chronic kidney disease, stage 4 (severe); N17.9 Acute kidney failure, unspecified; N10 Acute pyelonephritis; E11.21 Type 2 diabetes mellitus with diabetic nephropathy; E11.22 Type 2 diabetes mellitus with diabetic chronic kidney disease; E87.5 Hyperkalemia; T46.4X5A Adverse effect of angiotensin-converting-enzyme inhibitors, initial encounter; I12.9 Hypertensive chronic kidney disease with stage 1 through stage 4 chronic kidney disease, or unspecified chronic kidney disease; K59.00 Constipation, unspecified; Z88.2 Allergy status to sulfonamides; Z88.8 Allergy status to other drugs, medicaments and biological substances; Z88.0 Allergy status to penicillin; Z91.013 Allergy to seafood; Z87.440 Personal history of urinary (tract) infections; Z87.442 Personal history of urinary calculi
CPT/HCPCS: 76770; 80048; 81001; 83036; 83735; 85025; 85027; 87086; 93005; 99285

== ENCOUNTER 2018-04-15 22:06 | Inpatient (IN) | payer OTHER ==
[2018-04-15] MEDS ORDERED: SODIUM CHLORIDE 0.9% 1,000 ML IV STA (22:25)
--- NOTE | 2018-04-15 22:32 | ED ---
Recheck HPI - General Chief Complaint: Recheck/Abnormal Lab/Rx Stated Complaint: Weakness Time Seen by Provider: 04/15/18 22:06 Source: patient, RN notes reviewed Mode of arrival: EMS Limitations: no limitations - History of Present Illness Initial Comments: This is a 57-year-old female was transferred from [facility] for evaluation of acute on chronic kidney injury. She does have a history of recurrent urinary tract infections she has had a history of heart or nephrosis and hydroureter with a left ureteral stent which was placed when she was living in [place] at [facility] she went into the hospital and request for after being found elaborate have elevated creatinine that decreased GFR. She also complains of some bilateral CVA area pain and some lower abdominal pain she probably does have a history of UTI with minimally elevated white blood cell count 7. She was treated as an outpatient but is getting worse. She denies any overt fevers she states she is was not feeling well. She was started on Keflex palpation medications denies seem to prevent increasing creatinine. She was sent for higher level care evaluation by nephrology and possibly neurology. MD Complaint: abnormal lab - Related Data Home Medications Medication Instructions Recorded Confirmed Citalopram Hydrobromide [CeleXA] 20 mg PO DAILY 02/08/18 04/15/18 Gabapentin [Neurontin] 300 mg PO TID PRN 02/08/18 04/15/18 Insulin Aspart [NovoLOG] See Protocol SQ AC-TID 02/08/18 04/15/18 Omeprazole [PriLOSEC] 20 mg PO AC-BRKFST 02/08/18 04/15/18 traMADol HCL [Ultram] 50 mg PO Q6HR PRN 02/08/18 04/15/18 Previous Rx's Medication Instructions Recorded Insulin Detemir [Levemir] 20 unit SQ QAM #0 02/10/18 Lisinopril [Zestril] 10 mg PO DAILY #0 02/10/18 Allergies Allergy/AdvReac Type Severity Reaction Status Date / Time celecoxib [From Celebrex] Allergy Rash/Hives Verified 04/15/18 22:30 Penicillins Allergy Unknown Verified 04/15/18 22:30 Childhood shellfish derived [Shellfish] Allergy Rash/Hives Verified 04/15/18 22:30 Sulfa (Sulfonamide Allergy Rash/Hives Verified 04/15/18 22:30 Antibiotics) Review of Systems ROS Statement: Those systems with pertinent positive or pertinent negative responses have been documented in the HPI. ROS Other: All systems not noted in ROS Statement are negative. Past Medical History Past Medical History: Diabetes Mellitus, Hypertension, Syncope History of Any Multi-Drug Resistant Organisms: None Reported Past Surgical History: Hernia Repair, Tubal Ligation Additional Past Surgical History / Comment(s): Renal stents: end of November. Stents removed in early December per patient. Hemangioma opened and drained 20 years ago. Past Anesthesia/Blood Transfusion Reactions: No Reported Reaction Past Psychological History: No Psychological Hx Reported Smoking Status: Never smoker Past Alcohol Use History: None Reported Past Drug Use History: None Reported - Past Family History Sister(s) Family Medical History: Hypertension Additional Family Medical History / Comment(s): CML, Mother Family Medical History: Hypertension Additional Family Medical History / Comment(s): Per patient mother was a borderline diabetic. at 49 years old from septic gallbladder attack and [place]. General Exam - General Exam Comments Initial Comments: This a well-developed well-nourished awake alert oriented 3 female Limitations: no limitations General appearance: alert, in no apparent distress Head exam: Present: atraumatic, normocephalic, normal inspection Eye exam: Present: normal appearance, PERRL, EOMI. Absent: scleral icterus, conjunctival injection, periorbital swelling ENT exam: Present: normal exam, mucous membranes moist Neck exam: Present: normal inspection. Absent: tenderness, meningismus, lymphadenopathy Respiratory exam: Present: normal lung sounds bilaterally. Absent: respiratory distress, wheezes, rales, rhonchi, stridor Cardiovascular Exam: Present: regular rate, normal rhythm, normal heart sounds. Absent: systolic murmur, diastolic murmur, rubs, gallop, clicks GI/Abdominal exam: Present: soft, tenderness (Mild lower abdominal tenderness no guarding rebound masses or bruits), normal bowel sounds. Absent: distended, guarding, rebound, rigid Rectal exam: Present: deferred Extremities exam: Present: normal inspection, full ROM, normal capillary refill. Absent: tenderness, pedal edema, joint swelling, calf tenderness Back exam: Present: normal inspection, CVA tenderness (R), CVA tenderness (L) (I 'll bilateral CVA tenderness palpation) Neurological exam: Present: alert, oriented X3, CN II-XII intact Psychiatric exam: Present: normal affect, normal mood Skin exam: Present: warm, dry, intact, normal color. Absent: rash Course Vital Signs 04/15/18 04/15/18 04/15/18 22:07 22:22 22:48 Temperature 97.8 F Pulse Rate 101 H 78 Pulse Rate [ 82 [employer] ] Respiratory 18 16 Rate Blood Pressure 161/63 O2 Sat by Pulse 99 Oximetry 04/15/18 23:08 Temperature Pulse Rate 86 Pulse Rate [ [employer] ] Respiratory 16 Rate Blood Pressure 143/84 O2 Sat by Pulse 99 Oximetry Medical Decision Making - Medical Decision Making I did review the material provided from the other hospital. I did discuss the case with the patient and with Dr. Reynolds. Patient be admitted with nephrology consultation continued inpatient treatment of UTI failed outpatient treatment - Lab Data Result diagrams: 04/15/18 22:40 04/15/18 22:40 Lab Results 04/15/18 04/15/18 04/15/18 Range/Units 22:40 22:40 22:40 WBC 7.2 (3.8-10.6) k/uL RBC 4.11 (3.80-5.40) m/uL Hgb 10.7 L (11.4-16.0) gm/dL Hct 34.0 (34.0-46.0) % MCV 82.8 (80.0-100.0) fL MCH 26.0 (25.0-35.0) pg MCHC 31.5 (31.0-37.0) g/dL RDW 14.5 (11.5-15.5) % Plt Count 264 (150-450) k/uL Neutrophils % 61 % Lymphocytes % 31 % Monocytes % 3 % Eosinophils % 3 % Basophils % 1 % Neutrophils # 4.3 (1.3-7.7) k/uL Lymphocytes # 2.2 (1.0-4.8) k/uL Monocytes # 0.2 (0-1.0) k/uL Eosinophils # 0.3 (0-0.7) k/uL Basophils # 0.0 (0-0.2) k/uL Hypochromasia Slight Sodium 138 (137-145) mmol/L Potassium 5.7 H (3.5-5.1) mmol/L Chloride 108 H (98-107) mmol/L Carbon Dioxide 21 L (22-30) mmol/L Anion Gap 9 mmol/L BUN 73 H (7-17) mg/dL Creatinine 2.60 H (0.52-1.04) mg/dL Est GFR (CKD-EPI)AfAm 23 (>60 ml/min/1.73 sqM) Est GFR (CKD-EPI)NonAf 20 (>60 ml/min/1.73 sqM) Glucose 238 H (74-99) mg/dL Plasma Lactic Acid Bladimir 0.8 (0.7-2.0) mmol/L Calcium 9.2 (8.4-10.2) mg/dL Total Bilirubin 0.4 (0.2-1.3) mg/dL AST 16 (14-36) U/L ALT 12 (9-52) U/L Alkaline Phosphatase 173 H (38-126) U/L Total Protein 7.7 (6.3-8.2) g/dL Albumin 3.5 (3.5-5.0) g/dL Amylase 55 (30-110) U/L Lipase 125 (23-300) U/L Urine Color Urine Appearance (Clear) Urine pH (5.0-8.0) Ur Specific [place] (1.001-1.035) Urine Protein (Negative) Urine Glucose (UA) (Negative) Urine Ketones (Negative) Urine Blood (Negative) Urine Nitrite (Negative) Urine Bilirubin (Negative) Urine Urobilinogen (<2.0) mg/dL Ur Leukocyte Esterase (Negative) Urine RBC (0-5) /hpf Urine WBC (0-5) /hpf Urine WBC Clumps (None) /hpf Urine Mucus (None) /hpf 04/15/18 Range/Units 22:46 WBC (3.8-10.6) k/uL RBC (3.80-5.40) m/uL Hgb (11.4-16.0) gm/dL Hct (34.0-46.0) % MCV (80.0-100.0) fL MCH (25.0-35.0) pg MCHC (31.0-37.0) g/dL RDW (11.5-15.5) % Plt Count (150-450) k/uL Neutrophils % % Lymphocytes % % Monocytes % % Eosinophils % % Basophils % % Neutrophils # (1.3-7.7) k/uL Lymphocytes # (1.0-4.8) k/uL Monocytes # (0-1.0) k/uL Eosinophils # (0-0.7) k/uL Basophils # (0-0.2) k/uL Hypochromasia Sodium (137-145) mmol/L Potassium (3.5-5.1) mmol/L Chloride (98-107) mmol/L Carbon Dioxide (22-30) mmol/L Anion Gap mmol/L BUN (7-17) mg/dL Creatinine (0.52-1.04) mg/dL Est GFR (CKD-EPI)AfAm (>60 ml/min/1.73 sqM) Est GFR (CKD-EPI)NonAf (>60 ml/min/1.73 sqM) Glucose (74-99) mg/dL Plasma Lactic Acid Bladimir (0.7-2.0) mmol/L Calcium (8.4-10.2) mg/dL Total Bilirubin (0.2-1.3) mg/dL AST (14-36) U/L ALT (9-52) U/L Alkaline Phosphatase (38-126) U/L Total Protein (6.3-8.2) g/dL Albumin (3.5-5.0) g/dL Amylase (30-110) U/L Lipase (23-300) U/L Urine Color Light Yellow Urine Appearance Turbid H (Clear) Urine pH 6.0 (5.0-8.0) Ur Specific [place] 1.011 (1.001-1.035) Urine Protein 1+ H (Negative) Urine Glucose (UA) 1+ H (Negative) Urine Ketones Negative (Negative) Urine Blood Small H (Negative) Urine Nitrite Negative (Negative) Urine Bilirubin Negative (Negative) Urine Urobilinogen <2.0 (<2.0) mg/dL Ur Leukocyte Esterase Large H (Negative) Urine RBC 12 H (0-5) /hpf Urine WBC >182 H (0-5) /hpf Urine WBC Clumps Many H (None) /hpf Urine Mucus Rare H (None) /hpf - EKG Data -: EKG Interpreted by Mt EKG shows normal: sinus rhythm (Sinus rhythm rate of 85. A 128 QRS duration 86 QT since QTC 362/4:[address]-T wave changes) Disposition Clinical Impression: Acute on chronic renal failure, Urinary tract infection, Failure of outpatient treatment Disposition: ADMITTED IP TO THIS HOSP Condition: Stable Referrals: Samuel Pitt MD [Primary Care Provider] - 1-2 days
[2018-04-15 22:56] LABS: Basophils % (A) 1 %; Eosinophils # (A) 0.3 k/uL (0-0.7); Eosinophils % (A) 3 %; HGB 10.7 gm/dL (11.4-16.0); Hypochromasia Slight; Lymphocytes # (A) 2.2 k/uL (1.0-4.8); Lymphocytes % (A) 31 %; MCHC 31.5 g/dL (31.0-37.0); MCV 82.8 fL (80.0-100.0); Mean Platelet Volume 6.3; Monocytes # (A) 0.2 k/uL (0-1.0); Monocytes % (A) 3 %; Neutrophils # (A) 4.3 k/uL (1.3-7.7); Neutrophils % (A) 61 %; Platelet Count 264 k/uL (150-450); RBC 4.11 m/uL (3.80-5.40); RDW 14.5 % (11.5-15.5); WBC 7.2 k/uL (3.8-10.6)
[2018-04-15 23:06] LABS: Appearance,Urine Turbid (Clear); Bilirubin,Urine Negative (Negative); Blood,Urine Small (Negative); Color,Urine Light Yellow; Glucose,Urine (UA) 1+ (Negative); Ketones,Urine Negative (Negative); Leukocyte Esterase,Urine Large (Negative); Mucus,Urine Rare /hpf; Nitrite,Urine Negative (Negative); Protein,Urine 1+ (Negative); RBC,Urine 12 /hpf (0-5); Specific Gravity,Urine 1.011 (1.001-1.035); Urobilinogen,Urine <2.0 mg/dL (<2.0); WBC,Urine >182 /hpf (0-5)
[2018-04-15 23:06] LABS: Albumin 3.5 g/dL (3.5-5.0); Calcium 9.2 mg/dL (8.4-10.2); Total Bilirubin 0.4 mg/dL (0.2-1.3); Total Protein 7.7 g/dL (6.3-8.2)
[2018-04-15 23:07] LABS: Potassium 5.7 mmol/L (3.5-5.1)
[2018-04-15] MEDS ORDERED: ONDANSETRON 4 MG/2 ML VIAL IVP PRN (23:28)
[2018-04-15] MEDS ORDERED: NALOXONE 0.4 MG/ML 1 ML VIAL IV PRN (23:28)
[2018-04-16] MEDS: traMADol 50 MG TAB PO PRN ×3 (00:44→18:01)
[2018-04-16] MEDS: SODIUM CHLORIDE 0.9% 1,000 ML IV SCH ×2 (00:45→13:00)
[2018-04-16 07:38] LABS: Glucose,Whole Blood 246 mg/dL (75-99)
[2018-04-16] MEDS: INSULIN ASPART 100 UNIT/ML 1 ML 10 ML VIAL SQ SCH ×4 (07:45→21:11)
[2018-04-16] MEDS: CITALOPRAM HYDROBROMIDE 20 MG TAB PO SCH (07:45)
[2018-04-16] MEDS: INSULIN DETEMIR 100 UNIT/ML 10 ML VIAL SQ SCH (08:20)
[2018-04-16] MEDS: GABAPENTIN 300 MG CAP PO PRN ×2 (08:20→18:16)
[2018-04-16 08:24] VITALS: RESP 16
[2018-04-16] MEDS ORDERED: FAMOTIDINE 20 MG TAB PO SCH (09:00)
[2018-04-16] MEDS ORDERED: LISINOPRIL 20 MG TAB PO SCH (09:00)
[2018-04-16 11:41] LABS: Glucose,Whole Blood 222 mg/dL (75-99)
--- NOTE | 2018-04-16 11:41 | P.NPCON ---
History of Present Illness - Reason for Consult acute renal failure, chronic renal failure - History of Present Illness Reason for consultation: Acute kidney injury on chronic kidney disease History of present illness: Patient is a 57-year-old female seen in renal consultation for acute kidney injury on chronic kidney disease. Patient has history of chronic kidney disease stage IV with creatinine of 2 in January 2018. No prior records available. Patient states she has history of recurrent urinary tract infections since a young age. She is also noted to have bilateral hydronephrosis and had a left ureteral stent placed in November for 2 weeks which was subsequently removed. The procedure was done in [place]. Patient states she developed a UTI and was taking Keflex 1 week prior to admission. Due to no improvement in symptoms she was sent here by her physician from [place]. She does admit to suprapubic tenderness along with dysuria. No hematuria. No vomiting or diarrhea. Denies use of NSAIDs. Denies chest pain or shortness of breath. She is currently receiving normal saline at 80 mL an hour. She is on IV Rocephin. She does have history of insulin dependent diabetes mellitus which she states was diagnosed 8 years ago. Denies family history of renal disease. Vital signs are stable. General: The patient appeared well nourished and normally developed. HEENT: Head exam is unremarkable. Neck is without jugular venous distension. LUNGS: Lungs are clear to auscultation and percussion. Breath sounds decreased. HEART: Rate and Rhythm are regular. First and second heart sounds normal. No murmurs, rubs or gallops. ABDOMEN: Abdominal exam reveals normal bowel sounds. Mild tenderness. EXTREMITITES: No clubbing, cyanosis, or edema. Past Medical History Past Medical History: Diabetes Mellitus, Hypertension, Syncope History of Any Multi-Drug Resistant Organisms: None Reported Past Surgical History: Hernia Repair, Tubal Ligation Additional Past Surgical History / Comment(s): Renal stents: end of November. Stents removed in early December per patient. Hemangioma opened and drained 20 years ago. Past Anesthesia/Blood Transfusion Reactions: No Reported Reaction Past Psychological History: No Psychological Hx Reported Smoking Status: Never smoker Past Alcohol Use History: None Reported Past Drug Use History: None Reported - Past Family History Sister(s) Family Medical History: Hypertension Additional Family Medical History / Comment(s): CML, Mother Family Medical History: Hypertension Additional Family Medical History / Comment(s): Per patient mother was a borderline diabetic. at 49 years old from septic gallbladder attack and [place]. Medications and Allergies Home Medications Medication Instructions Recorded Confirmed Type Citalopram Hydrobromide [CeleXA] 20 mg PO DAILY 02/08/18 04/15/18 History Gabapentin [Neurontin] 300 mg PO TID PRN 02/08/18 04/15/18 History Insulin Aspart [NovoLOG] See Protocol SQ AC-TID 02/08/18 04/15/18 History Omeprazole [PriLOSEC] 20 mg PO AC-BRKFST 02/08/18 04/15/18 History traMADol HCL [Ultram] 50 mg PO Q6HR PRN 02/08/18 04/15/18 History Insulin Detemir [Levemir] 20 unit SQ QAM #0 02/10/18 04/15/18 Rx Lisinopril [Zestril] 10 mg PO DAILY #0 02/10/18 04/15/18 Rx Allergies Allergy/AdvReac Type Severity Reaction Status Date / Time celecoxib [From Celebrex] Allergy Rash/Hives Verified 04/15/18 22:30 Penicillins Allergy Unknown Verified 04/15/18 22:30 Childhood shellfish derived [Shellfish] Allergy Rash/Hives Verified 04/15/18 22:30 Sulfa (Sulfonamide Allergy Rash/Hives Verified 04/15/18 22:30 Antibiotics) Physical Exam Vitals: Vital Signs Temp Pulse Pulse Pulse Resp BP BP 04/16/18 08:20 16 04/16/18 07:00 98.3 F 87 16 106/63 04/16/18 00:40 98.1 F 82 20 145/87 04/16/18 00:05 97.1 F L 94 16 127/81 04/15/18 23:08 86 16 143/84 04/15/18 22:48 78 16 04/15/18 22:22 82 04/15/18 22:07 97.8 F 101 H 18 161/63 Pulse Ox 04/16/18 08:20 04/16/18 07:00 94 L 04/16/18 00:40 99 04/16/18 00:05 97 04/15/18 23:08 99 04/15/18 22:48 04/15/18 22:22 04/15/18 22:07 99 Intake and Output 04/15/18 04/16/18 04/16/18 22:59 06:59 14:59 Other: Voiding Method Toilet Toilet Toilet # Voids 3 Weight 81.647 kg 81.647 kg Results - Lab Results Most recent lab results Calcium 9.2 mg/dL (8.4-10.2) 04/15/18 22:40 04/15/18 22:40 04/15/18 22:40 Assessment and Plan Plan: Assessment: 1. Nonoliguric acute kidney injury mostly prerenal secondary to UTI and ADRI inhibitor. Creatinine was 2.6 on admission. 2. Chronic kidney disease stage IV secondary to obstructive uropathy with baseline creatinine near 2 from January 2018. Patient also has proteinuria on UA which is likely from underlying diabetic kidney disease as well. 3. Recurrent urinary tract infections. Currently on IV antibiotics. 4. Bilateral hydronephrosis noted on renal ultrasound from January 2018. At that time she was evaluated by urology but no interventions were done. She did have a left ureteral stent placed in November which was subsequently removed 2 weeks later in [place]. 5. Hyperkalemia secondary to acute kidney injury. This was a hemolyzed sample. 6. Insulin-dependent diabetes mellitus. 7. Metabolic acidosis secondary to acute kidney injury. Plan: I will decreased rate of normal saline to 50 mL an hour. Encourage oral intake. Avoid nephrotoxins. Hold lisinopril for now. Follow-up morning labs. Consider urology consultation. Thank you for the consultation. I will continue to follow the patient with you during her hospital stay.
[2018-04-16 11:47] LABS: Potassium 6.3 mmol/L (3.5-5.1)
[2018-04-16] MEDS ORDERED: SODIUM POLYSTYRENE SULFONATE 15 GM/60 ML BOTTLE PO STA (12:01)
[2018-04-16] MEDS ORDERED: DEXTROSE 50%-WATER 50 ML SYRINGE IVP STA ×2 (12:02→18:26)
[2018-04-16] MEDS ORDERED: SODIUM BICARB 8.4% 50 ML SYR (1 MEQ/ML) IV STA (12:07)
[2018-04-16] MEDS ORDERED: INSULIN REGULAR 100 UNIT/ML VIAL IV ONE ×2 (12:30→19:30)
--- NOTE | 2018-04-16 13:39 | P.HPIM ---
History of Present Illness 57-year-old pleasant female was a transfer from [facility] where she presented with complaints of urinary increased to urinary frequency dysuria. Patient has multiple urinary tract infections in the past patient was recently discharged from the hospital about a month ago patient was on antibiotics Keflex until couple days ago after completion of antibiotics patient started having symptoms of dysuria or urgency any increase the frequency. Patient he a significant abnormal with elevated white blood cell count with positive leukocyte esterase and nitrate positive. Patient baseline creatinine is around 2 bit elevated at about her baseline. Nephrology evaluated the patient. Patient had chronic kidney disease and renal failure from my obstructive uropathy. Patient was evaluated by urology during her previous hospitalizations. Patient was a valid by infectious disease at that time as well because of her complicated multiple urinary tract infections in the past patient had a left ureteral stent that was placed in [place] had a history of hydroureter or hydronephrosis. Patient has elevated potassium secondary to hemolysis patient lisinopril will be held for now. Patient is comparing of low- grade fever with temperature of 99 at home doesn't have any leukocytosis patient is afebrile here. Review of Systems REVIEW OF SYSTEMS: CONSTITUTIONAL: No fever, no malaise, no fatigue. HEENT: No recent visual problems or hearing problems. Denied any sore throat. CARDIOVASCULAR: No chest pain, orthopnea, PND, no palpitations, no syncope. PULMONARY: No shortness of breath, no cough, no hemoptysis. GASTROINTESTINAL: No diarrhea, no nausea, no vomiting, no abdominal pain. Normoactive bowel sounds. NEUROLOGICAL: No headaches, no weakness, no numbness. HEMATOLOGICAL: Denies any bleeding or petechiae. GENITOURINARY: As mentioned in HPI MUSCULOSKELETAL/RHEUMATOLOGICAL: Denies any joint pain, swelling, or any muscle pain. ENDOCRINE: Denies any polyuria or polydipsia. The rest of the 14-point review of systems is negative. Past Medical History Past Medical History: Diabetes Mellitus, Hypertension, Syncope History of Any Multi-Drug Resistant Organisms: None Reported Past Surgical History: Hernia Repair, Tubal Ligation Additional Past Surgical History / Comment(s): Renal stents: end of November. Stents removed in early December per patient. Hemangioma opened and drained 20 years ago. Past Anesthesia/Blood Transfusion Reactions: No Reported Reaction Past Psychological History: No Psychological Hx Reported Smoking Status: Never smoker Past Alcohol Use History: None Reported Past Drug Use History: None Reported - Past Family History Sister(s) Family Medical History: Hypertension Additional Family Medical History / Comment(s): CML, Mother Family Medical History: Hypertension Additional Family Medical History / Comment(s): Per patient mother was a borderline diabetic. at 49 years old from septic gallbladder attack and [place]. Medications and Allergies Home Medications Medication Instructions Recorded Confirmed Type Citalopram Hydrobromide [CeleXA] 20 mg PO DAILY 02/08/18 04/15/18 History Gabapentin [Neurontin] 300 mg PO TID PRN 02/08/18 04/15/18 History Insulin Aspart [NovoLOG] See Protocol SQ AC-TID 02/08/18 04/15/18 History Omeprazole [PriLOSEC] 20 mg PO AC-BRKFST 02/08/18 04/15/18 History traMADol HCL [Ultram] 50 mg PO Q6HR PRN 02/08/18 04/15/18 History Insulin Detemir [Levemir] 20 unit SQ QAM #0 02/10/18 04/15/18 Rx Lisinopril [Zestril] 10 mg PO DAILY #0 02/10/18 04/15/18 Rx Allergies Allergy/AdvReac Type Severity Reaction Status Date / Time celecoxib [From Celebrex] Allergy Rash/Hives Verified 04/15/18 22:30 Penicillins Allergy Unknown Verified 04/15/18 22:30 Childhood shellfish derived [Shellfish] Allergy Rash/Hives Verified 04/15/18 22:30 Sulfa (Sulfonamide Allergy Rash/Hives Verified 04/15/18 22:30 Antibiotics) Physical Exam Vitals: Vital Signs Temp Pulse Pulse Pulse Resp BP BP 04/16/18 08:20 16 04/16/18 07:00 98.3 F 87 16 106/63 04/16/18 00:40 98.1 F 82 20 145/87 04/16/18 00:05 97.1 F L 94 16 127/81 04/15/18 23:08 86 16 143/84 04/15/18 22:48 78 16 04/15/18 22:22 82 04/15/18 22:07 97.8 F 101 H 18 161/63 Pulse Ox 04/16/18 08:20 04/16/18 07:00 94 L 04/16/18 00:40 99 04/16/18 00:05 97 04/15/18 23:08 99 04/15/18 22:48 04/15/18 22:22 04/15/18 22:07 99 Intake and Output 04/15/18 04/16/18 04/16/18 22:59 06:59 14:59 Other: Voiding Method Toilet Toilet Toilet # Voids 3 Weight 81.647 kg 81.647 kg PHYSICAL EXAMINATION: GENERAL: The patient is alert and oriented x3, not in any acute distress. Well developed, well nourished. HEENT: Pupils are round and equally reacting to light. EOMI. No scleral icterus. No conjunctival pallor. Normocephalic, atraumatic. No pharyngeal erythema. No thyromegaly. CARDIOVASCULAR: S1 and S2 present. No murmurs, rubs, or gallops. PULMONARY: Chest is clear to auscultation, no wheezing or crackles. ABDOMEN: Soft, nontender, nondistended, normoactive bowel sounds. No palpable organomegaly. MUSCULOSKELETAL: No joint swelling or deformity. EXTREMITIES: No cyanosis, clubbing, or pedal edema. NEUROLOGICAL: Gross neurological examination did not reveal any focal deficits. SKIN: No rashes. Results CBC & Chem 7: 04/15/18 22:40 04/16/18 11:10 Labs: Abnormal Lab Results - Last 24 Hours (Table) 04/15/18 04/15/18 04/15/18 Range/Units 22:40 22:40 22:46 Hgb 10.7 L (11.4-16.0) gm/dL Potassium 5.7 H (3.5-5.1) mmol/L Chloride 108 H (98-107) mmol/L Carbon Dioxide 21 L (22-30) mmol/L BUN 73 H (7-17) mg/dL Creatinine 2.60 H (0.52-1.04) mg/dL Glucose 238 H (74-99) mg/dL POC Glucose (mg/dL) (75-99) mg/dL Alkaline Phosphatase 173 H (38-126) U/L Urine Appearance Turbid H (Clear) Urine Protein 1+ H (Negative) Urine Glucose (UA) 1+ H (Negative) Urine Blood Small H (Negative) Ur Leukocyte Esterase Large H (Negative) Urine RBC 12 H (0-5) /hpf Urine WBC >182 H (0-5) /hpf Urine WBC Clumps Many H (None) /hpf Urine Mucus Rare H (None) /hpf 04/16/18 04/16/18 04/16/18 Range/Units 07:36 11:10 11:40 Hgb (11.4-16.0) gm/dL Potassium 6.3 H* (3.5-5.1) mmol/L Chloride 110 H (98-107) mmol/L Carbon Dioxide (22-30) mmol/L BUN 68 H (7-17) mg/dL Creatinine 2.80 H (0.52-1.04) mg/dL Glucose 236 H (74-99) mg/dL POC Glucose (mg/dL) 246 H 222 H (75-99) mg/dL Alkaline Phosphatase (38-126) U/L Urine Appearance (Clear) Urine Protein (Negative) Urine Glucose (UA) (Negative) Urine Blood (Negative) Ur Leukocyte Esterase (Negative) Urine RBC (0-5) /hpf Urine WBC (0-5) /hpf Urine WBC Clumps (None) /hpf Urine Mucus (None) /hpf Microbiology - Last 24 Hours (Table) 04/15/18 22:46 Urine Culture - Preliminary Urine,Voided Thrombosis Risk Factor Assmnt - Choose All That Apply Any of the Below Risk Factors Present?: Yes Each Factor Represents 1 point: Age 41-60 years, Swollen legs (current) Other Risk Factors: No Other congenital or acquired thrombophilia - If yes, enter type in comment: No Thrombosis Risk Factor Assessment Total Risk Factor Score: 2 Thrombosis Risk Factor Assessment Level: Low Risk Assessment and Plan Plan: -Possible urinary tract infection: Patient was started on Rocephin urine cultures and blood cultures were obtained urease abnormal infectious disease will become consulted because of recurrent UTIs. -Acute kidney injury on chronic kidney disease acute kidney injury etiology is probably prerenal azotemia R nonoliguric acute tubular necrosis patient's lisinopril is being held patient present creatinine is 2.6 baseline is around 2. Indices is secondary to obstructive uropathy, urology was consulted as well -Hyperkalemia: Multifactorial secondary to ADRI inhibitor, acute renal failure and hemoptysis patient was given Kayexalate, D5 with insulin. -Bilateral hydronephrosis and ureteral stent -Metabolic acidosis secondary to uremia from kidney failure -Hypertension -Type 2 diabetes mellitus
--- NOTE | 2018-04-16 14:24 | P.GSCN ---
History of Present Illness Consult date: 04/16/18 Reason for Consult: Recurrent UTI, hydronephrosis Requesting physician: Callie Fritz History of present illness: The patient is a 57-year-old female who was found to have hydronephrosis in [place] earlier this year. She underwent left ureteral stent insertion in November 2017. The stent was removed subsequently. She was hospitalized at [facility] in January 2018 for treatment of presumed pyelonephritis. CT scan of the abdomen and pelvis showed mild bilateral hydronephrosis but no evidence of urolithiasis. The ureters appeared to be slightly dilated down to the level of the bladder which was felt to be thick walled. The radiologist felt there was periureteral and renal stranding. She was placed on Keflex 1 week ago for treatment of a UTI, as she was experiencing dysuria, hematuria, left flank discomfort, and pressure. She failed to improve and was subsequently transferred to [facility] for admission. Review of Systems - Constitutional Denies chills, Denies fever - Gastrointestinal Reports nausea - Genitourinary Genitourinary: Reports dysuria, Reports flank pain, Reports hematuria Past Medical History Past Medical History: Diabetes Mellitus, Hypertension, Syncope History of Any Multi-Drug Resistant Organisms: None Reported Past Surgical History: Hernia Repair, Tubal Ligation Additional Past Surgical History / Comment(s): Renal stents: end of November. Stents removed in early December per patient. Hemangioma opened and drained 20 years ago. Past Anesthesia/Blood Transfusion Reactions: No Reported Reaction Past Psychological History: No Psychological Hx Reported Smoking Status: Never smoker Past Alcohol Use History: None Reported Past Drug Use History: None Reported - Past Family History Sister(s) Family Medical History: Hypertension Additional Family Medical History / Comment(s): CML, Mother Family Medical History: Hypertension Additional Family Medical History / Comment(s): Per patient mother was a borderline diabetic. at 49 years old from septic gallbladder attack and MA. Medications and Allergies Home Medications Medication Instructions Recorded Confirmed Type Citalopram Hydrobromide [CeleXA] 20 mg PO DAILY 02/08/18 04/15/18 History Gabapentin [Neurontin] 300 mg PO TID PRN 02/08/18 04/15/18 History Insulin Aspart [NovoLOG] See Protocol SQ AC-TID 02/08/18 04/15/18 History Omeprazole [PriLOSEC] 20 mg PO AC-BRKFST 02/08/18 04/15/18 History traMADol HCL [Ultram] 50 mg PO Q6HR PRN 02/08/18 04/15/18 History Insulin Detemir [Levemir] 20 unit SQ QAM #0 02/10/18 04/15/18 Rx Lisinopril [Zestril] 10 mg PO DAILY #0 02/10/18 04/15/18 Rx Allergies Allergy/AdvReac Type Severity Reaction Status Date / Time celecoxib [From Celebrex] Allergy Rash/Hives Verified 04/15/18 22:30 Penicillins Allergy Unknown Verified 04/15/18 22:30 Childhood shellfish derived [Shellfish] Allergy Rash/Hives Verified 04/15/18 22:30 Sulfa (Sulfonamide Allergy Rash/Hives Verified 04/15/18 22:30 Antibiotics) Surgical - Exam Vital Signs Temp Pulse Resp BP Pulse Ox 97.8 F 101 H 18 161/63 99 04/15/18 22:07 04/15/18 22:07 04/15/18 22:07 04/15/18 22:07 04/15/18 22:07 - General well developed, well nourished, no distress - Respiratory normal respiratory effort - Abdomen Abdomen: soft, tender (Mild left lower quadrant and suprapubic tenderness), no guarding, no rigid, no rebound, no distended - Psychiatric oriented to time, oriented to person, oriented to place, speech is normal, memory intact Results - Labs 04/15/18 22:40 04/16/18 11:10 Abnormal Lab Results - Last 24 Hours (Table) 04/15/18 04/15/18 04/15/18 Range/Units 22:40 22:40 22:46 Hgb 10.7 L (11.4-16.0) gm/dL Potassium 5.7 H (3.5-5.1) mmol/L Chloride 108 H (98-107) mmol/L Carbon Dioxide 21 L (22-30) mmol/L BUN 73 H (7-17) mg/dL Creatinine 2.60 H (0.52-1.04) mg/dL Glucose 238 H (74-99) mg/dL POC Glucose (mg/dL) (75-99) mg/dL Alkaline Phosphatase 173 H (38-126) U/L Urine Appearance Turbid H (Clear) Urine Protein 1+ H (Negative) Urine Glucose (UA) 1+ H (Negative) Urine Blood Small H (Negative) Ur Leukocyte Esterase Large H (Negative) Urine RBC 12 H (0-5) /hpf Urine WBC >182 H (0-5) /hpf Urine WBC Clumps Many H (None) /hpf Urine Mucus Rare H (None) /hpf 04/16/18 04/16/18 04/16/18 Range/Units 07:36 11:10 11:40 Hgb (11.4-16.0) gm/dL Potassium 6.3 H* (3.5-5.1) mmol/L Chloride 110 H (98-107) mmol/L Carbon Dioxide (22-30) mmol/L BUN 68 H (7-17) mg/dL Creatinine 2.80 H (0.52-1.04) mg/dL Glucose 236 H (74-99) mg/dL POC Glucose (mg/dL) 246 H 222 H (75-99) mg/dL Alkaline Phosphatase (38-126) U/L Urine Appearance (Clear) Urine Protein (Negative) Urine Glucose (UA) (Negative) Urine Blood (Negative) Ur Leukocyte Esterase (Negative) Urine RBC (0-5) /hpf Urine WBC (0-5) /hpf Urine WBC Clumps (None) /hpf Urine Mucus (None) /hpf Microbiology - Last 24 Hours (Table) 04/15/18 22:46 Urine Culture - Preliminary Urine,Voided Diabetes panel 04/15/18 04/16/18 Range/Units 22:40 11:10 Sodium 138 141 (137-145) mmol/L Potassium 5.7 H 6.3 H* (3.5-5.1) mmol/L Chloride 108 H 110 H (98-107) mmol/L Carbon Dioxide 21 L 23 (22-30) mmol/L BUN 73 H 68 H (7-17) mg/dL Creatinine 2.60 H 2.80 H (0.52-1.04) mg/dL Glucose 238 H 236 H (74-99) mg/dL Calcium 9.2 9.0 (8.4-10.2) mg/dL AST 16 (14-36) U/L ALT 12 (9-52) U/L Alkaline Phosphatase 173 H (38-126) U/L Total Protein 7.7 (6.3-8.2) g/dL Albumin 3.5 (3.5-5.0) g/dL Calcium panel 04/15/18 04/16/18 Range/Units 22:40 11:10 Calcium 9.2 9.0 (8.4-10.2) mg/dL Albumin 3.5 (3.5-5.0) g/dL Pituitary panel 04/15/18 04/16/18 Range/Units 22:40 11:10 Sodium 138 141 (137-145) mmol/L Potassium 5.7 H 6.3 H* (3.5-5.1) mmol/L Chloride 108 H 110 H (98-107) mmol/L Carbon Dioxide 21 L 23 (22-30) mmol/L BUN 73 H 68 H (7-17) mg/dL Creatinine 2.60 H 2.80 H (0.52-1.04) mg/dL Glucose 238 H 236 H (74-99) mg/dL Calcium 9.2 9.0 (8.4-10.2) mg/dL Adrenal panel 04/15/18 04/16/18 Range/Units 22:40 11:10 Sodium 138 141 (137-145) mmol/L Potassium 5.7 H 6.3 H* (3.5-5.1) mmol/L Chloride 108 H 110 H (98-107) mmol/L Carbon Dioxide 21 L 23 (22-30) mmol/L BUN 73 H 68 H (7-17) mg/dL Creatinine 2.60 H 2.80 H (0.52-1.04) mg/dL Glucose 238 H 236 H (74-99) mg/dL Calcium 9.2 9.0 (8.4-10.2) mg/dL Total Bilirubin 0.4 (0.2-1.3) mg/dL AST 16 (14-36) U/L ALT 12 (9-52) U/L Alkaline Phosphatase 173 H (38-126) U/L Total Protein 7.7 (6.3-8.2) g/dL Albumin 3.5 (3.5-5.0) g/dL Assessment and Plan (1) Urinary tract infection Current Visit: Yes Status: Acute Code(s): N39.0 - URINARY TRACT INFECTION, SITE NOT SPECIFIED SNOMED Code(s): 98752257 Plan: The patient is been treated for recurrent UTIs. She apparently has a thick wall bladder and has been noted in the past to have bilateral hydronephrosis. Her renal function has deteriorated somewhat since she was hospitalized in January 2018. Urine cultures at [facility] in January 2018 were negative. The current urine culture is pending. In the meantime, she is being treated with Rocephin. Bladder scan will be utilized to assess bladder emptying, and a renal ultrasound will be obtained. The patient will be followed by Dr. Edge, as he saw her in January and she does not intend to return to her [place] urologist in the near future. Time with Patient: Greater than 30
[2018-04-16 18:00] LABS: Glucose,Whole Blood 108 mg/dL (75-99)
[2018-04-16 18:38] LABS: Iron Saturation 17.31 (12.00-45.00)
--- NOTE | 2018-04-16 18:53 | US ---
EXAMINATION TYPE: US kidneys/renal and bladder DATE OF EXAM: 04/16/2018 COMPARISON: 02/11/2018 CLINICAL HISTORY: Hematuria. Abn labs, hx of bilateral hydronephrosis EXAM MEASUREMENTS: Right Kidney: 11.4 x 4.9 x 4.9 cm Left Kidney: 12.0 x 5.5 x 5.7 cm Right Kidney: Hydronephrosis Left Kidney: Hydronephrosis Bladder: Thickened wall = 1.1 cm Right Jet seen There is bilateral hydronephrosis. Urinary bladder is sonolucent. IMPRESSION: There is bilateral renal hydronephrosis unchanged compared to last exam. There is no atrophy. Right u reteral jet is seen. I do not suspect obstruction since there is no atrophy and no change in the sybil rity of hydronephrosis compared to the exam 2 months ago.
[2018-04-16 20:21] LABS: Glucose,Whole Blood 85 mg/dL (75-99)
--- NOTE | 2018-04-16 23:50 | CONS ---
CONSULTATION DATE OF SERVICE: 04/16/2018 REASON FOR CONSULTATION: Recurrent urinary tract infection. HISTORY OF PRESENT ILLNESS: The patient is a 57-year-old female, who did have a complicated urinary history with a history of recurrent UTIs. The patient did have evidence of left-sided hydronephrosis for which the patient did have a ureteral stent placed and subsequently it was removed when she was in [facility]. She presented to this facility back in January of 2018 when the patient was treated for a UTI. She did have negative urinary cultures x2, though urine was significantly positive. She was on IV Rocephin and subsequently discharged home on oral Ceftin. The patient now presented to the [facility] initially with chief complaints of burning of urine, suprapubic discomfort, more of a dull aching pain 3 to 4 out of 10, and some pain in the flank area, also, dull aching, 3 to 4 out of 10, no radiation. The patient has slight nausea but no vomiting. Denies significant diarrhea. No chest pain, shortness of breath or cough. She was evaluated at that facility. She was noted to have elevated BUN and creatinine. Subsequently patient has been transferred to [facility] for higher level of care. On arrival to the ER the patient is afebrile. Highest temperature has been 99.3. The patient's white count was normal at 7.2, however, the urine was positive with large leukocyte esterase, WBCs, with culture currently pending. The patient has been started on Rocephin because of her recurrent UTIs. Infectious Disease was consulted for further recommendation regarding antibiotic therapy. REVIEW OF SYSTEMS: CONSTITUTIONAL: Positive for weakness. Some chills. No high-grade fever. EYES: No complaint. ENT: No complaints. RESPIRATORY: No complaints. CARDIOVASCULAR: No complaints. GENITOURINARY: As per HPI. GASTROINTESTINAL: No complaints. MUSCULOSKELETAL: No complaints. INTEGUMENTARY: No complaints. PSYCHIATRIC: No complaints. ENDOCRINE: No complaints. NEUROLOGIC: No complaints. PAST MEDICAL HISTORY: Recurrent urinary intact infection, left ureteral stent placement for hydronephrosis, diabetes mellitus, and hypertension. PAST SURGICAL HISTORY: Hernia repair, tubal ligation, left renal stent placement and subsequent removal. SOCIAL HISTORY: Denies any history of smoking, drinking, or drug use. FAMILY HISTORY: Sister with history of CML. Mother has hypertension and diabetes. ALLERGIES: PENICILLIN and SULFA, however, has tolerated Keflex and ceftriaxone without any problems. MEDICATIONS: 1. The patient is currently on Rocephin 1 g daily. 2. She is on Celexa. 3. Pepcid. 4. Neurontin. 5. NovoLog. 6. Levemir. 7. Narcan. 8. Zofran. 9. Ultram. EXAMINATION: Blood pressure is 138/88 with a pulse of 91, temperature 98.3. She is 92% on 3 L nasal cannula. GENERAL DESCRIPTION: A middle-aged female lying in bed in no distress. No tachypnea or accessory muscle of respiration use. HEENT: Shows slight pallor. No scleral icterus. Oral mucosa is moist. No pharyngeal erythema or thrush. NECK: Trachea central. No thyromegaly. LUNGS: Unlabored breathing. Clear to auscultation anteriorly. No wheeze or crackle. HEART: S1, S2. Regular rate and rhythm. ABDOMEN: No guarding or rigidity. No organomegaly. EXTREMITIES: No edema of the feet. SKIN: No rash or mass palpable. NEUROLOGIC: The patient is awake, alert, oriented x3. Cranial nerves normal. LABS: Hemoglobin is 10.7, white count 7.2, BUN of 68, creatinine 2.0. ____ was subsequently down 5.2. UA has been positive as mentioned above. Ultrasound suggested bilateral hydronephrosis no other obstruction or abnormality. DIAGNOSTIC IMPRESSION AND PLAN: 1. Patient admitted to the hospital with urinary burning, frequency, suprapubic and flank pain. Patient noted to have history of complicated urinary tract infections with left ureteral stent. Urine cultures x2 were negative on last admission. This time showing a positive UA with thickened bladder wall, underlying cystitis. Enteric gram-negative not entirely excluded. 2. The patient is noted to have multiple antibiotic allergies that will limit the number of antibiotics we could use. PLAN: 1. Rocephin 1 g IV piggyback daily. 2. IV fluids. 3. Await bladder scan and bladder emptying as suggested by Urology, as incomplete emptying of the bladder may be risk factor for recurrent urinary tract infections. 4. We will follow up on clinical condition and culture and further adjust medication if needed. Thank you for the consultation. Will follow this patient along with you. MMODL / IJN: [id number] /
[2018-04-17] MEDS: traMADol 50 MG TAB PO PRN ×2 (02:56→21:05)
[2018-04-17] MEDS: GABAPENTIN 300 MG CAP PO PRN ×2 (02:56→21:05)
[2018-04-17] MEDS ORDERED: ALPRAZolam 0.25 MG TAB PO STA (03:46)
[2018-04-17 07:20] LABS: Glucose,Whole Blood 201 mg/dL (75-99)
[2018-04-17] MEDS: INSULIN DETEMIR 100 UNIT/ML 10 ML VIAL SQ SCH (08:20)
[2018-04-17] MEDS: INSULIN ASPART 100 UNIT/ML 1 ML 10 ML VIAL SQ SCH ×4 (08:20→21:05)
[2018-04-17] MEDS: SODIUM CHLORIDE 0.9% 1,000 ML IV SCH (08:21)
[2018-04-17] MEDS: FAMOTIDINE 20 MG TAB PO SCH (08:21)
[2018-04-17 09:58] LABS: Calcium 8.8 mg/dL (8.4-10.2); Potassium 4.9 mmol/L (3.5-5.1)
--- NOTE | 2018-04-17 10:04 | P.PN ---
Subjective Patient is seen in follow-up for acute kidney injury on chronic kidney disease. Patient has chronic kidney disease stage IV with creatinine of 2 and January 2018. No other records available. Creatinine was 2.8 on admission and is 2.87 today. Patient was also hyperkalemic which improved with medical management. She has history of recurrent urinary tract infections. She admits to good urine output. No hematuria or dysuria. Renal ultrasound revealed bilateral hydronephrosis and she scheduled for bilateral double-J stent placement today. Vital signs are stable. General: The patient appeared well nourished and normally developed. HEENT: Head exam is unremarkable. Neck is without jugular venous distension. LUNGS: Lungs are clear to auscultation and percussion. Breath sounds decreased. HEART: Rate and Rhythm are regular. First and second heart sounds normal. No murmurs, rubs or gallops. ABDOMEN: Abdominal exam reveals normal bowel sounds. Non-tender and non- distended. No evidence of peritonitis. EXTREMITITES: No clubbing, cyanosis, or edema. Objective - Vital Signs Vital signs: Vital Signs Temp 98.7 F 04/17/18 07:45 Pulse 86 04/17/18 07:45 Resp 16 04/17/18 08:00 BP 116/76 04/17/18 07:45 Pulse Ox 95 04/17/18 07:45 Intake & Output 04/16/18 04/17/18 04/17/18 18:59 06:59 18:59 Intake Total 100 Balance 100 Intake: Oral 100 Other: Voiding Method Toilet Toilet Toilet # Voids 4 1 - Labs CBC & Chem 7: 04/15/18 22:40 04/17/18 08:47 Labs: Abnormal Lab Results - Last 24 Hours (Table) 04/16/18 04/16/18 04/16/18 Range/Units 11:10 11:10 11:40 Potassium 6.3 H* (3.5-5.1) mmol/L Chloride 110 H (98-107) mmol/L BUN 68 H (7-17) mg/dL Creatinine 2.80 H (0.52-1.04) mg/dL Glucose 236 H (74-99) mg/dL POC Glucose (mg/dL) 222 H (75-99) mg/dL Iron 49 L (50-170) ug/dL 04/16/18 04/16/18 04/17/18 Range/Units 17:24 17:58 07:18 Potassium 5.2 H (3.5-5.1) mmol/L Chloride (98-107) mmol/L BUN (7-17) mg/dL Creatinine (0.52-1.04) mg/dL Glucose (74-99) mg/dL POC Glucose (mg/dL) 108 H 201 H (75-99) mg/dL Iron (50-170) ug/dL 04/17/18 Range/Units 08:47 Potassium (3.5-5.1) mmol/L Chloride 109 H (98-107) mmol/L BUN 70 H (7-17) mg/dL Creatinine 2.87 H (0.52-1.04) mg/dL Glucose 188 H (74-99) mg/dL POC Glucose (mg/dL) (75-99) mg/dL Iron (50-170) ug/dL Microbiology - Last 24 Hours (Table) 04/15/18 22:46 Urine Culture - Final Urine,Voided 04/15/18 22:40 Blood Culture - Preliminary Blood No Growth after 24 hours Assessment and Plan Plan: Assessment: 1. Nonoliguric acute kidney injury secondary to obstructive uropathy. Creatinine 2.6 on admission and is up to 2.87 today. 2. Chronic kidney disease stage IV secondary to obstructive uropathy with baseline creatinine near 2 from January 2018. Patient also has proteinuria on UA which is likely from underlying diabetic kidney disease as well. 3. Recurrent urinary tract infections. Currently on IV antibiotics. 4. Bilateral hydronephrosis noted on renal ultrasound from January 2018. At that time she was evaluated by urology but no interventions were done. She did have a left ureteral stent placed in November which was subsequently removed 2 weeks later in [place]. She is scheduled for bilateral double-J stent placement today. 5. Hyperkalemia secondary to acute kidney injury. Improved with medical management. 6. Insulin-dependent diabetes mellitus. 7. Metabolic acidosis secondary to acute kidney injury. Improved. Plan: Maintain normal saline at 50 mL an hour. Encourage oral intake. Avoid nephrotoxins. Hold lisinopril for now. I expect renal function to improve after double-J stent placement.
[2018-04-17 10:16] VITALS: BMI 30.9
[2018-04-17] MEDS: ALPRAZolam 0.5 MG TAB PO PRN (11:31)
[2018-04-17] MEDS: CITALOPRAM HYDROBROMIDE 20 MG TAB PO SCH (11:32)
[2018-04-17 12:04] LABS: Glucose,Whole Blood 138 mg/dL (75-99)
--- NOTE | 2018-04-17 15:37 | P.PN ---
Progress Note - Text Progress Note Date: 04/17/18 The patient was noted have a postvoid residual of over 300 mL on 2 occasions last night and a Lo catheter was inserted. She says that she feels better since it was placed. BUN/creatinine today remain elevated at 70/2.87. I reviewed the patient's computed tomography scan from [place] which had been done earlier this summer. Her bladder is extremely thick walled and it is possible that her bilateral hydronephrosis is related to abnormally high intravesical pressures which impaired drainage from the kidneys. If this is the case then her creatinine should improve with catheter drainage. If it does not then bilateral double-J catheter placement may need to be considered. Her abnormal urinalyses may be related to incomplete bladder emptying and not necessarily recurrent urinary tract infections. If her most recent urine culture shows no growth then I'm not sure that she will need to be continued on antibiotics.
[2018-04-17 17:21] LABS: Glucose,Whole Blood 202 mg/dL (75-99)
--- NOTE | 2018-04-17 17:45 | PN ---
PROGRESS NOTE DATE OF SERVICE: 04/17/2018. REASON FOR FOLLOWUP: Recurrent urinary tract infection. INTERVAL HISTORY: The patient is currently afebrile. She is breathing comfortably. Denies having any chest pain, shortness of breath, cough. No abdominal pain or any diarrhea. Scheduled for cystoscopy later this afternoon. EXAMINATION: Blood pressure 123/75 with a pulse of 80, temperature 98.5. She is 96% on room air. General description is a middle aged female lying in bed in no distress. RESPIRATORY SYSTEM: Unlabored breathing. Clear to auscultation anteriorly. HEART: S1, S2. Regular rate and rhythm. ABDOMEN: Soft, no tenderness. EXTREMITIES: No edema of feet. LABS: BUN of 70, creatinine is 2.7. Blood and urinary cultures are so far negative. DIAGNOSTIC IMPRESSION AND PLAN: Patient with recurrent urinary tract infection and also with evidence of a worsening of the kidney function for cystoscopy this afternoon with underlying hydronephrosis. The patient to continue with Rocephin until workup is completed and culture finalized. Continue supportive care. MMODL / IJN: [id number] /
--- NOTE | 2018-04-17 18:27 | PN ---
PROGRESS NOTE DATE OF SERVICE: 04/17/2018 This 57-year-old woman who was admitted with UTI with acute renal failure was slated for cystoscopy by the Urology today. The most recent cultures are negative. No chest pain. No palpitations. No fever. PHYSICAL EXAM: Alert and oriented x3. Pulse 80, blood pressure 123/74, respiration 16, temperature 98.4, pulse ox 98% on room air. HEENT: Conjunctivae normal. Oral mucosa moist. Neck is no jugular venous distention. No carotid bruit. No lymph node enlargement. CARDIOVASCULAR: S1, S2 muffled. RESPIRATORY: Breath sounds diminished in the bases. No rhonchi. No crackles. ABDOMEN: Soft, nontender. No mass palpable. LEGS: No edema. NERVOUS SYSTEM: No focal deficits. LABS: WBC 7.2, hemoglobin 10.7, creatinine is 2.87. ASSESSMENT: 1. Urinary tract infection on IV antibiotics. 2. Acute renal failure possible prerenal factors. 3. Hyperkalemia. 4. Chronic kidney disease, possibly stage III. 5. Bilateral hydronephrosis and ureteral stent. 6. Metabolic acidosis. 7. Hypertension. 8. Diabetes mellitus type 2. RECOMMENDATIONS AND DISCUSSION: I recommend to continue current medications and symptomatic treatment. Otherwise, at this time I recommend continue with current medications, cystoscopy by Urology. Continue the antibiotics. I will also follow the patient closely with Infectious Disease and Nephrology as well. Await cultures. We will continue to monitor and the bladder abdominal ultrasound has been noted. Further recommendations to follow. See orders for details. MMODL / IJN: [id number] /
[2018-04-17 20:36] LABS: Glucose,Whole Blood 315 mg/dL (75-99)
[2018-04-17] MEDS: HEPARIN SODIUM,PORCINE 5,000 UNIT/ML 1 ML VIAL SQ SCH (21:06)
[2018-04-18] MEDS: SODIUM CHLORIDE 0.9% 1,000 ML IV SCH ×2 (05:56→23:47)
[2018-04-18 07:05] LABS: Glucose,Whole Blood 204 mg/dL (75-99)
[2018-04-18 07:58] LABS: Basophils % (A) 1 %; Eosinophils # (A) 0.2 k/uL (0-0.7); Eosinophils % (A) 5 %; HCT 33.3 % (34.0-46.0); HGB 10.1 gm/dL (11.4-16.0); Hypochromasia Slight; Lymphocytes # (A) 1.2 k/uL (1.0-4.8); Lymphocytes % (A) 25 %; MCH 25.5 pg (25.0-35.0); MCHC 30.4 g/dL (31.0-37.0); MCV 83.6 fL (80.0-100.0); Mean Platelet Volume 6.1; Monocytes # (A) 0.2 k/uL (0-1.0); Monocytes % (A) 4 %; Neutrophils # (A) 3.2 k/uL (1.3-7.7); Neutrophils % (A) 65 %; Platelet Count 226 k/uL (150-450); RBC 3.98 m/uL (3.80-5.40); RDW 14.4 % (11.5-15.5)
[2018-04-18] MEDS: FAMOTIDINE 20 MG TAB PO SCH (07:58)
[2018-04-18] MEDS: PANTOPRAZOLE 40 MG TABLET PO SCH (07:58)
[2018-04-18] MEDS: CITALOPRAM HYDROBROMIDE 20 MG TAB PO SCH (07:58)
[2018-04-18] MEDS: ALPRAZolam 0.5 MG TAB PO PRN ×2 (07:58→17:55)
[2018-04-18] MEDS: HEPARIN SODIUM,PORCINE 5,000 UNIT/ML 1 ML VIAL SQ SCH ×2 (07:58→21:40)
[2018-04-18] MEDS: INSULIN ASPART 100 UNIT/ML 1 ML 10 ML VIAL SQ SCH ×4 (07:59→21:41)
[2018-04-18 08:14] LABS: Potassium 5.1 mmol/L (3.5-5.1)
[2018-04-18] MEDS: traMADol 50 MG TAB PO PRN ×2 (09:14→17:55)
[2018-04-18] MEDS: GABAPENTIN 300 MG CAP PO PRN ×2 (09:14→17:55)
[2018-04-18] MEDS: INSULIN DETEMIR 100 UNIT/ML 10 ML VIAL SQ SCH (09:14)
[2018-04-18 11:27] LABS: Glucose,Whole Blood 262 mg/dL (75-99)
--- NOTE | 2018-04-18 14:41 | P.PN ---
Subjective Progress Note Date: 04/18/18 Principal diagnosis: This is a 57-year-old female seen in consultation because of acute kidney injury sustained to outlet obstruction. The cause of the outlet obstruction is unclear she is making more urine and her creatinine is improving with the Lo catheter in. She is noted to have chronic hydronephrosis supposedly based on previous CT scans. Currently she has chronic low back pain which is unchanged no pain in the loin area no fever chills no nausea vomiting good appetite is able to walk. Past history significant for diabetes hypertension syncope. She has had stents in the past supposedly Objective - Vital Signs Vital signs: Vital Signs Temp 97.9 F 04/18/18 06:27 Pulse 83 04/18/18 06:27 Resp 16 04/18/18 06:27 BP 159/91 04/18/18 06:27 Pulse Ox 97 04/18/18 06:27 Intake & Output 04/17/18 04/18/18 04/18/18 18:59 06:59 18:59 Intake Total 500 Output Total 350 2600 Balance -350 -2600 500 Weight 81.647 kg 81.647 kg Intake: Oral 500 Output: Urine 350 2600 Other: Voiding Method Indwelling Catheter Indwelling Catheter Indwelling Catheter On examination she is awake alert oriented comfortable HEENT exam no JVP lymphadenopathy thyromegaly Lungs clear to auscultation percussion good air entry bilaterally Heart sounds are unremarkable for any murmur rub gallop Abdomen soft nontender bladder was not felt no kidneys palpable Extremity exam was no edema Neurologically awake alert oriented comfortable - Labs CBC & Chem 7: 04/18/18 07:22 04/18/18 07:22 Labs: Abnormal Lab Results - Last 24 Hours (Table) 04/17/18 04/17/18 04/18/18 Range/Units 17:20 20:35 07:02 Hgb (11.4-16.0) gm/dL Hct (34.0-46.0) % MCHC (31.0-37.0) g/dL Chloride (98-107) mmol/L BUN (7-17) mg/dL Creatinine (0.52-1.04) mg/dL Glucose (74-99) mg/dL POC Glucose (mg/dL) 202 H 315 H 204 H (75-99) mg/dL 04/18/18 04/18/1818 Range/Units 07:22 07:22 11:26 Hgb 10.1 L (11.4-16.0) gm/dL Hct 33.3 L (34.0-46.0) % MCHC 30.4 L (31.0-37.0) g/dL Chloride 108 H (98-107) mmol/L BUN 54 H (7-17) mg/dL Creatinine 2.40 H (0.52-1.04) mg/dL Glucose 209 H (74-99) mg/dL POC Glucose (mg/dL) 262 H (75-99) mg/dL Microbiology - Last 24 Hours (Table) 04/15/18 22:40 Blood Culture - Preliminary Blood No Growth after 48 hours Assessment and Plan Assessment: Impression 1. Acute kidney injury from secondary to outlet obstruction from possibly neurogenic bladder. Creatinine improved from 2.87-2.4 this morning. 2. Chronic kidney disease sec stage IV, ondary to chronic hydronephrosis baseline creatinine available to me here in this hospital is 2.03 dated 2017 26 MLS per minute etiology is probably diabetic nephropathy and nephrosclerosis. Urinalysis shows 1+ proteinuria. Not quantified. 3. Mild anemia hemoglobin is 10.1. Recommendation 1. Can be discharged with a Lo catheter to be followed up by the urology and nephrology. 2. Maintain Current IV until discharged. 3. Follow-up with repeat labs tomorrow
--- NOTE | 2018-04-18 14:45 | P.PN ---
Subjective Progress Note Date: 04/18/18 The patient has apparent bilateral hydronephrosis due to a thick-walled bladder and probable high pressure obstruction and incomplete bladder emptying. He catheters placed to see if the hydronephrosis and/or creatinine will improve. Her creatinine is gone from 2.89-2.4. We'll can continue to observe her with an indwelling catheter. The number continues to drop then the bladder is a source of her pathology will need to be dealt with. Objective - Vital Signs Vital signs: Vital Signs Temp 98.1 F 04/18/18 14:41 Pulse 76 04/18/18 14:41 Resp 16 04/18/18 14:41 BP 137/83 04/18/18 14:41 Pulse Ox 97 04/18/18 14:41 Intake & Output 04/17/18 04/18/18 04/18/18 18:59 06:59 18:59 Intake Total 500 Output Total 350 2600 1400 Balance -350 -2600 -900 Weight 81.647 kg 81.647 kg Intake: Oral 500 Output: Urine 350 2600 1400 Other: Voiding Method Indwelling Catheter Indwelling Catheter Indwelling Catheter - Labs CBC & Chem 7: 04/18/18 07:22 04/18/18 07:22 Labs: Abnormal Lab Results - Last 24 Hours (Table) 04/17/18 04/17/18 04/18/18 Range/Units 17:20 20:35 07:02 Hgb (11.4-16.0) gm/dL Hct (34.0-46.0) % MCHC (31.0-37.0) g/dL Chloride (98-107) mmol/L BUN (7-17) mg/dL Creatinine (0.52-1.04) mg/dL Glucose (74-99) mg/dL POC Glucose (mg/dL) 202 H 315 H 204 H (75-99) mg/dL 04/18/18 04/18/18 04/18/18 Range/Units 07:22 07:22 11:26 Hgb 10.1 L (11.4-16.0) gm/dL Hct 33.3 L (34.0-46.0) % MCHC 30.4 L (31.0-37.0) g/dL Chloride 108 H (98-107) mmol/L BUN 54 H (7-17) mg/dL Creatinine 2.40 H (0.52-1.04) mg/dL Glucose 209 H (74-99) mg/dL POC Glucose (mg/dL) 262 H (75-99) mg/dL Microbiology - Last 24 Hours (Table) 04/15/18 22:40 Blood Culture - Preliminary Blood No Growth after 48 hours
[2018-04-18 17:05] LABS: Glucose,Whole Blood 108 mg/dL (75-99)
--- NOTE | 2018-04-18 20:10 | PN ---
PROGRESS NOTE DATE OF SERVICE: 04/18/2018. HISTORY: This 57-year-old woman has UTI with acute renal failure. as evaluated by Urology. A Lo catheter has been inserted. The Lo catheter is draining cloudy urine with some sediments also. No chest pain. No palpitations. No fever. Indwelling Lo catheter has been inserted overnight. No chest pain. No palpitations. No fever. The creatinine today is 2.4. PHYSICAL EXAM: Alert and oriented. Pulse 82, blood pressure 137/83, respirations 16, temperature 98.1, pulse ox 97% on room air. HEENT: Conjunctivae normal. Oral mucosa moist. NECK: No jugular venous distention. No lymph node enlargement. CARDIOVASCULAR: S1 and S2 muffled. LUNGS: Breath sounds diminished in the bases. No rhonchi, no crackles. ABDOMEN: Soft, nontender. No mass palpable. EXTREMITIES: Legs no edema. NERVOUS SYSTEM: No focal deficits. LABS: Creatinine is 2.4, hemoglobin 10.1. ASSESSMENT: 1. Urinary tract infection, on IV antibiotics. 2. Acute renal failure, possible prerenal factors. 3. Hyperkalemia. 4. Chronic kidney disease, underlying possibly stage III. 5. Right hydronephrosis with ureteral stent. 6. Metabolic acidosis. 7. Hypertension. 8. Diabetes mellitus type 2. RECOMMENDATIONS AND DISCUSSION: Continue current medications and continue hydration. Continue the rest of medications and antibiotics. Otherwise monitor closely. Repeat labs. Further recommendations to follow. MMODL / IJN: [id number] /
[2018-04-18 21:00] LABS: Glucose,Whole Blood 148 mg/dL (75-99)
[2018-04-19] MEDS: traMADol 50 MG TAB PO PRN (04:52)
--- NOTE | 2018-04-19 05:04 | PN ---
PROGRESS NOTE DATE OF SERVICE: 04/18/2018. REASON FOR FOLLOWUP: Possible urinary tract infection. INTERVAL HISTORY: The patient is afebrile. The patient did have a Lo catheter placement because of fluid retention. Denies having any chest pain, shortness of breath, cough. No abdominal pain. No flank pain. EXAMINATION: Blood pressure 137/83 with a pulse of 76, temperature 98.1. She is 97% on room air. General description is a middle-aged female lying in bed in no distress. Respiratory system unlabored breathing. Clear to auscultation anteriorly. Heart S1, S2. Regular rate and rhythm. ABDOMEN: Soft. No tenderness. LABS: , hemoglobin is 10.8, white count 5.0 with a BUN of 54, creatinine is 2.40. Urine culture has been negative so far. Blood culture negative. DIAGNOSTIC IMPRESSION AND PLAN: Patient admitted to the hospital with abdominal pain, burning, frequency of urine. Patient did have a positive UA with concern for possible urinary tract infection. Blood cultures have been negative so far. Await further repeat urine culture to finalize. If those remain negative, discontinue antibiotics. Continue supportive care. MMODL / IJN: [id number] /
[2018-04-19 06:43] VITALS: BP 137/82; TEMP 97.1
[2018-04-19 07:07] LABS: Glucose,Whole Blood 182 mg/dL (75-99)
[2018-04-19 08:09] LABS: Basophils % (A) 1 %; Eosinophils # (A) 0.2 k/uL (0-0.7); Eosinophils % (A) 4 %; HCT 32.1 % (34.0-46.0); Hypochromasia Slight; Lymphocytes # (A) 1.1 k/uL (1.0-4.8); Lymphocytes % (A) 23 %; MCH 25.5 pg (25.0-35.0); MCV 82.4 fL (80.0-100.0); Mean Platelet Volume 5.8; Monocytes # (A) 0.2 k/uL (0-1.0); Monocytes % (A) 4 %; Neutrophils # (A) 3.4 k/uL (1.3-7.7); Neutrophils % (A) 68 %; Platelet Count 215 k/uL (150-450); RDW 14.4 % (11.5-15.5)
[2018-04-19] MEDS: CITALOPRAM HYDROBROMIDE 20 MG TAB PO SCH (08:14)
[2018-04-19] MEDS: PANTOPRAZOLE 40 MG TABLET PO SCH (08:14)
[2018-04-19] MEDS: INSULIN DETEMIR 100 UNIT/ML 10 ML VIAL SQ SCH (08:14)
[2018-04-19] MEDS: HEPARIN SODIUM,PORCINE 5,000 UNIT/ML 1 ML VIAL SQ SCH (08:14)
[2018-04-19] MEDS: ALPRAZolam 0.5 MG TAB PO PRN (08:14)
[2018-04-19] MEDS: INSULIN ASPART 100 UNIT/ML 1 ML 10 ML VIAL SQ SCH ×2 (08:15→12:36)
[2018-04-19 08:16] LABS: Calcium 8.9 mg/dL (8.4-10.2); Potassium 4.6 mmol/L (3.5-5.1)
[2018-04-19 08:22] VITALS: PULSE 82
[2018-04-19] MEDS: GABAPENTIN 300 MG CAP PO PRN (09:10)
[2018-04-19 12:07] LABS: Glucose,Whole Blood 235 mg/dL (75-99)
--- NOTE | 2018-04-19 15:41 | DS ---
DISCHARGE SUMMARY FINAL DIAGNOSES: 1. Urinary tract infection on empiric IV antibiotics with negative cultures. 2. Acute renal failure possibly prerenal factors. 3. Chronic kidney disease stage 3 baseline. 4. Hyperkalemia. 5. Right hydronephrosis and ureteral stent. 6. Metabolic acidosis. 7. Hypertension. 8. Diabetes mellitus type 2. DISCHARGE DISPOSITION: The patient will be discharged in stable condition with guarded prognosis. HISTORY OF PRESENT ILLNESS: This 57-year-old woman with past admitted with possibly UTI and acute renal failure. Patient treated symptomatically. Urology recommended Lo catheter and continued follow up. Infectious Disease saw the patient. The final cultures are negative. Antibiotic will be stopped. The creatinine improved to 2.4. On exam vitals are stable. Cardiovascular: S1, S2. Abdomen: Soft. Nervous System: No focal deficit. DISCHARGE ADVICE AND MEDICATIONS: 1. Diet is cardiac. 2. Activity limited until followup. 3. Follow up with Dr. Himanshu Pitt as recommended. 4. Follow up with Dr. Edge as recommend. 5. Follow with Dr. Brownlee as recommend. MEDICATIONS: 1. Celexa 20 mg p.o. daily. 2. Neurontin 300 mg t.i.d. 3. NovoLog scale. 4. Prilosec 20 mg daily. 5. Ultram 50 mg q.6h p.r.n. 6. Levemir 10 units subcu q.a.m. Total time taken 35 minutes. CODI / AGUSTINAN: [id number] /
== END 2018-04-19 14:27 | disposition home or self-care (01) | DRG 689 ==
LOC: EC 22:06 → 4MS4W 23:26
PROVIDERS: ADMIT Hospitalist; ATTEND Hospitalist
DX: N39.0 Urinary tract infection, site not specified (principal); N17.0 Acute kidney failure with tubular necrosis; E87.2 Acidosis; N18.4 Chronic kidney disease, stage 4 (severe); N13.6 Pyonephrosis; Z88.0 Allergy status to penicillin; Z88.2 Allergy status to sulfonamides; Z87.440 Personal history of urinary (tract) infections; D64.9 Anemia, unspecified; E11.21 Type 2 diabetes mellitus with diabetic nephropathy; E11.22 Type 2 diabetes mellitus with diabetic chronic kidney disease; E87.5 Hyperkalemia; G89.29 Other chronic pain; M54.5 Low back pain; I12.9 Hypertensive chronic kidney disease with stage 1 through stage 4 chronic kidney disease, or unspecified chronic kidney disease; T46.4X5A Adverse effect of angiotensin-converting-enzyme inhibitors, initial encounter; Z79.4 Long term (current) use of insulin; Z79.899 Other long term (current) drug therapy; Z82.49 Family history of ischemic heart disease and other diseases of the circulatory system; Z83.3 Family history of diabetes mellitus
CPT/HCPCS: 36415; 76770; 80048; 80053; 81001; 82150; 82728; 83540; 83550; 83605; 83690; 84132; 85025; 87040; 87086; 93005; 96360; 99285